=== PATIENT | male | born 1975 | race Caucasian/White ===

== ENCOUNTER → 2017-01-19 | Outpatient (CLI) | payer OTHER ==
[~2017-01-19] MED LIST: AMOX500C OR; AZIT600T PO; CIPR500T89 PO; NORCOTAB PO; PRED10TA2 PO; PRED20TA PO; PRED50TA PO; robitussin
--- NOTE | 2017-01-20 08:04 | REP ---
LEFT FOOT: HISTORY: Pain after trauma yesterday. FINDINGS: The joint spaces are symmetric and relatively well maintained. There is no evidence of acute fracture or destructive osseous lesion. IMPRESSION: Negative. Signed by Huy Medina DO 01/20/2017 09:55 A
--- NOTE | 2017-01-20 08:05 | REP ---
LEFT ANKLE: HISTORY: Pain after trauma yesterday. FINDINGS: No acute fracture or destructive osseous lesion. The mortise is intact. There is a tiny retrocalcaneal heel spur. Signed by Huy Medina DO 01/20/2017 09:55 A
== END ==
LOC: M WUC 13:19
PROVIDERS: ATTEND Physician Assistant
DX: S93.422A Sprain of deltoid ligament of left ankle, initial encounter (principal); S93.602A Unspecified sprain of left foot, initial encounter; X58.XXXA Exposure to other specified factors, initial encounter; Y92.89 Other specified places as the place of occurrence of the external cause; Y93.89 Activity, other specified; Y99.8 Other external cause status

== ENCOUNTER → 2017-02-09 | Outpatient (CLI) | payer OTHER ==
--- NOTE | 2017-02-09 12:46 | REP ---
Clinical: Hyperlipidemia. Comparison: 02/20/2016. Technique: PA and lateral. Findings: The mediastinum and cardiac silhouette are normal. The lung zheng demonstrate minimal stable chronic changes without acute consolidation, effusion, or pneumothorax. The skeletal structures are intact and normal. Impression: 1. No acute cardiopulmonary process. Signed by Dayne Sanchez MD 02/09/2017 12:38 P
[2017-02-09 13:13] LABS: BASO # 0.1 K/mm3 (0.0-0.2); EOS # 0.5 K/mm3 (0.0-0.50); EOS % 4.9 % (0.0-3.0); LYMPH # 2.3 K/mm3 (1.5-4.5); LYMPH % 24.2 % (24.0-44.0); MEAN CORPUSCULAR HEMOGLOBIN 30.7 pg (27.0-33.0); MEAN CORPUSCULAR HGB CONC 33.6 g/dl (32.0-36.5); MEAN CORPUSCULAR VOLUME 91.5 fl (80.0-96.0); MONO # 0.9 K/mm3 (0.0-0.8); NEUTROPHILS # 5.6 K/mm3 (1.8-7.7); NEUTROPHILS % 59.1 % (36.0-66.0); RED CELL DISTRIBUTION WIDTH 12.9 % (11.5-14.5); WHITE BLOOD COUNT 9.5 K/mm3 (4.0-10.0)
[2017-02-09 13:32] LABS: ALBUMIN 3.6 GM/DL (3.2-5.2); ALBUMIN/GLOBULIN RATIO 1.03 (1.00-1.93); ALKALINE PHOSPHATASE 106 U/L (45-117); ALT/SGPT 30 U/L (12-78); ANION GAP 4 MEQ/L (8-16); AST/SGOT 17 U/L (15-37); BILIRUBIN,TOTAL 0.3 MG/DL (0.2-1.0); BLOOD UREA NITROGEN 8 MG/DL (7-18); CALCIUM LEVEL 9.1 MG/DL (8.5-10.1); CARBON DIOXIDE LEVEL 30 MEQ/L (21-32); CHLORIDE LEVEL 108 MEQ/L (98-107); CHOLESTEROL LEVEL 254 MG/DL (<200); GLOMERULAR FILTRATION RATE > 60.0 (>60); GLUCOSE, FASTING 80 MG/DL (70-105); POTASSIUM SERUM 4.4 MEQ/L (3.5-5.1); SODIUM LEVEL 142 MEQ/L (136-145); TOTAL PROTEIN 7.1 GM/DL (6.4-8.2); TRIGLYCERIDES LEVEL 155 MG/DL (<150)
--- NOTE | 2017-02-09 16:52 | ECGEPIP ---
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
== END ==
LOC: M LAB 12:07
PROVIDERS: ATTEND Physician Assistant Medical
DX: E78.2 Mixed hyperlipidemia (principal); J44.9 Chronic obstructive pulmonary disease, unspecified

== ENCOUNTER → 2017-02-19 | Outpatient (CLI) | payer OTHER | LOC: M LAB 08:28 | PROVIDERS: ATTEND Physician Assistant Medical | DX: R00.2 Palpitations (principal) ==

== ENCOUNTER → 2017-02-19 | Outpatient (CLI) | payer OTHER ==
--- NOTE | 2017-02-19 09:03 | REP ---
Right upper quadrant sonography: History: Right upper quadrant pain. Findings: Scanning through the right upper quadrant of the abdomen demonstrates a small partially contracted appearing gallbladder without evidence of stone or polyp. Common bile duct is normal measuring 0.4 cm in greatest diameter. No focal hepatic lesion is seen. No pancreatic abnormality is observed. There is no evidence of ascites or right renal abnormality. The right kidney measures 12.1 x 6.0 x 5.4 cm. Impression: Negative right upper quadrant sonography. Signed by Anthony Jarrett MD 02/19/2017 02:50 P
== END ==
LOC: M RAD 07:56
PROVIDERS: ATTEND Physician Assistant Medical
DX: R10.84 Generalized abdominal pain (principal)

== ENCOUNTER → 2017-05-25 | Outpatient (CLI) | payer OTHER ==
[~2017-05-25] MED LIST changes: +CIPR-249 PO; -CIPR500T89 PO
[2017-05-25 11:10] LABS: BASO # 0.1 K/mm3 (0.0-0.2); BASO % 0.7 % (0.0-1.0); EOS # 0.6 K/mm3 (0.0-0.50); EOS % 4.4 % (0.0-3.0); LYMPH # 2.6 K/mm3 (1.5-4.5); LYMPH % 20.6 % (24.0-44.0); MEAN CORPUSCULAR HEMOGLOBIN 30.4 pg (27.0-33.0); MEAN CORPUSCULAR HGB CONC 33.5 g/dl (32.0-36.5); MEAN CORPUSCULAR VOLUME 90.7 fl (80.0-96.0); MONO # 1.1 K/mm3 (0.0-0.8); MONO % 8.7 % (0.0-5.0); NEUTROPHILS % 64.6 % (36.0-66.0); RED CELL DISTRIBUTION WIDTH 13.2 % (11.5-14.5); WHITE BLOOD COUNT 12.3 K/mm3 (4.0-10.0)
[2017-05-25 11:37] LABS: ALBUMIN 3.8 GM/DL (3.2-5.2); ALBUMIN/GLOBULIN RATIO 1.19 (1.00-1.93); ALKALINE PHOSPHATASE 123 U/L (45-117); ALT/SGPT 43 U/L (12-78); ANION GAP 3 MEQ/L (8-16); AST/SGOT 22 U/L (15-37); BILIRUBIN,TOTAL 0.3 MG/DL (0.2-1.0); BLOOD UREA NITROGEN 8 MG/DL (7-18); CALCIUM LEVEL 8.8 MG/DL (8.5-10.1); CARBON DIOXIDE LEVEL 30 MEQ/L (21-32); CHLORIDE LEVEL 107 MEQ/L (98-107); CHOLESTEROL LEVEL 180 MG/DL (<200); CREATININE FOR GFR 0.76 MG/DL (0.70-1.30); FREE T4 0.77 NG/DL (0.76-1.46); GLOMERULAR FILTRATION RATE > 60.0 (>60); GLUCOSE, FASTING 90 MG/DL (70-105); POTASSIUM SERUM 4.4 MEQ/L (3.5-5.1); SODIUM LEVEL 140 MEQ/L (136-145); TRIGLYCERIDES LEVEL 162 MG/DL (<150)
== END ==
LOC: M LAB 10:39
PROVIDERS: ATTEND Physician Assistant Medical
DX: R07.9 Chest pain, unspecified (principal)

== ENCOUNTER → 2017-07-31 | Outpatient (CLI) | payer OTHER ==
--- NOTE | 2017-07-31 08:23 | REP ---
Clinical: Right anterior abdominal pain. Technique: Real time nielson scale ultrasound examination using curved array transducer. Findings: Directed ultrasound examination at the region of maximal tenderness along the right anterior abdominal wall demonstrates normal subcutaneous tissues and musculature as well as limited visualization of the intraperitoneal structures. There is no evidence for ventral hernia. Impression: Normal examination. No evidence for hernia. Signed by Dayne Sanchez MD 07/31/2017 08:14 A
== END ==
LOC: M RAD 06:24
PROVIDERS: ATTEND Physician Assistant Medical
DX: R10.9 Unspecified abdominal pain (principal)

== ENCOUNTER → 2017-08-12 | Outpatient (CLI) | payer OTHER ==
[~2017-08-12] MED LIST changes: +GASTROGRAFIN SOLUTION 30ML (Q9963) As Ordered ONE; +ISOVUE-370 76% 100ML VIAL (Q9967) As Ordered ONE
--- NOTE | 2017-08-12 17:38 | REP ---
CT abdomen and pelvis with IV and oral contrast: History: Abdominal pain. CT contrast dose: 100 mL of Isovue 370 is given intravenously. Comparison CT study February 28, 2016. CT findings: Preliminary digital paid internship radiographs are unremarkable. The lung bases are clear except for some plate-like atelectasis in the right base. No pleural effusion or upper abdominal ascites. The liver and spleen are normal in size and homogeneous in texture. No adrenal lesion is seen on either side. Pancreas is unremarkable. No gallbladder abnormality is observed. There is a cyst projecting medially from the upper pole of the right kidney, which measures 2.0 cm. The kidneys enhance symmetrically and are otherwise morphologically intact. No retroperitoneal mass or adenopathy is seen. Small and large intestinal bowel loops are unremarkable. A normal appendix is seen in the right lower quadrant. No abdominal wall defect is observed. No bony destructive lesion seen. Impression: No acute abdominal or pelvic abnormality. Small cyst left kidney. Signed by Anthony Jarrett MD 08/12/2017 08:30 P
== END ==
LOC: M RAD 13:53
PROVIDERS: ATTEND Physician Assistant Medical
DX: R10.84 Generalized abdominal pain (principal); N28.1 Cyst of kidney, acquired
CPT/HCPCS: 74177; Q9963; Q9967

== ENCOUNTER → 2017-09-19 | Outpatient (REF) | LOC: M SMT 09:09 | DX: M51.37 Other intervertebral disc degeneration, lumbosacral region (principal); M17.11 Unilateral primary osteoarthritis, right knee ==

== ENCOUNTER 2017-09-25 14:07 | Emergency (ER) | payer OTHER ==
[2017-09-25] MEDS: IBUPROFEN 600 MG TAB PO (16:19)
[2017-09-25] MEDS: METHOCARBAMOL 500 MG TAB PO (16:20)
== END 2017-09-25 16:42 | disposition home or self-care (01) ==
LOC: M ED 14:07
DX: M54.41 Lumbago with sciatica, right side (principal); M54.42 Lumbago with sciatica, left side; G89.29 Other chronic pain; R01.1 Cardiac murmur, unspecified; Z87.01 Personal history of pneumonia (recurrent); F17.200 Nicotine dependence, unspecified, uncomplicated; Z79.899 Other long term (current) drug therapy
CPT/HCPCS: 99282

== ENCOUNTER → 2017-11-14 | Outpatient (CLI) | payer OTHER | LOC: M CARPUL 14:53 | DX: R06.02 Shortness of breath (principal) | CPT/HCPCS: 94010 ==

== ENCOUNTER → 2017-11-21 | Outpatient (CLI) | payer OTHER ==
[2017-11-21 09:39] LABS: HEMATOCRIT 42.7 % (42.0-52.0); HEMOGLOBIN 13.8 g/dl (14.0-18.0); MEAN CORPUSCULAR HEMOGLOBIN 29.1 pg (27.0-33.0); MEAN CORPUSCULAR HGB CONC 32.3 g/dl (32.0-36.5); MEAN CORPUSCULAR VOLUME 89.9 fl (80.0-96.0); PLATELET COUNT, AUTOMATED 308 10^3/uL (150-450); RED BLOOD COUNT 4.75 10^6/uL (4.30-6.10); RED CELL DISTRIBUTION WIDTH 13.5 % (11.5-14.5); WHITE BLOOD COUNT 10.8 10^3/uL (4.0-10.0)
[2017-11-21 10:00] LABS: TESTOSTERONE 370 NG/DL (241-827)
[2017-11-21 10:03] LABS: ALBUMIN 3.7 GM/DL (3.2-5.2); ALBUMIN/GLOBULIN RATIO 1.16 (1.00-1.93); ALKALINE PHOSPHATASE 121 U/L (45-117); ALT/SGPT 46 U/L (12-78); ANION GAP 6 MEQ/L (8-16); AST/SGOT 26 U/L (7-37); BILIRUBIN,TOTAL 0.3 MG/DL (0.2-1.0); BLOOD UREA NITROGEN 8 MG/DL (7-18); CALCIUM LEVEL 8.7 MG/DL (8.5-10.1); CARBON DIOXIDE LEVEL 30 MEQ/L (21-32); CHLORIDE LEVEL 107 MEQ/L (98-107); CHOLESTEROL LEVEL 157 MG/DL (<200); CHOLESTEROL RISK RATIO 3.488 (<5); CREATININE FOR GFR 0.71 MG/DL (0.70-1.30); GLOMERULAR FILTRATION RATE > 60.0 (>60); GLUCOSE, FASTING 87 MG/DL (70-100); HDL CHOLESTEROL 45 MG/DL (>40); NON-HDL-C 112 MG/DL; POTASSIUM SERUM 4.3 MEQ/L (3.5-5.1); PROSTATIC SPECIFIC AG MONITOR 2.31 NG/ML (< 4.0); SODIUM LEVEL 143 MEQ/L (136-145); TOTAL PROTEIN 6.9 GM/DL (6.4-8.2); TRIGLYCERIDES LEVEL 160 MG/DL (<150)
[2017-11-21 11:17] LABS: ESTIMATED AVERAGE GLUCOSE 108 MG/DL (60-110); HEMOGLOBIN A1c 5.4 %
== END ==
LOC: M LAB 08:51
DX: I10 Essential (primary) hypertension (principal)
CPT/HCPCS: 71046

== ENCOUNTER 2018-01-02 18:28 | Emergency (ER) | payer OTHER ==
[2018-01-02 19:30] LABS: BASO # 0.1 10^3/uL (0.0-0.2); BASO % 0.6 % (0.0-1.0); EOS # 0.3 10^3/uL (0.0-0.50); EOS % 2.6 % (0.0-3.0); HEMATOCRIT 45.4 % (42.0-52.0); HEMOGLOBIN 14.9 g/dl (13.5-17.5); IMMATURE GRANULOCYTE % 2.8 % (0-3.0); LYMPH # 2.8 10^3/uL (1.5-4.5); MEAN CORPUSCULAR HEMOGLOBIN 29.1 pg (27.0-33.0); MEAN CORPUSCULAR HGB CONC 32.8 g/dl (32.0-36.5); MEAN CORPUSCULAR VOLUME 88.7 fl (80.0-96.0); MONO % 7.6 % (0.0-5.0); NEUTROPHILS # 8.1 10^3/uL (1.8-7.7); NEUTROPHILS % 64.4 % (36.0-66.0); PLATELET COUNT, AUTOMATED 347 10^3/uL (150-450); RED BLOOD COUNT 5.12 10^6/uL (4.30-6.10); RED CELL DISTRIBUTION WIDTH 13.3 % (11.5-14.5); WHITE BLOOD COUNT 12.6 10^3/uL (4.0-10.0)
[2018-01-02 19:46] LABS: INR 0.92; PROTHROMBIN TIME 12.4 SECONDS (12.4-14.5)
[2018-01-02 19:47] LABS: PARTIAL THROMBOPLASTIN TIME 29.7 SECONDS (26.8-37.9)
[2018-01-02 19:57] LABS: ANION GAP 7 MEQ/L (8-16); BLOOD UREA NITROGEN 6 MG/DL (7-18); CALCIUM LEVEL 9.9 MG/DL (8.5-10.1); CARBON DIOXIDE LEVEL 32 MEQ/L (21-32); CHLORIDE LEVEL 103 MEQ/L (98-107); CK-MB VALUE MASS < 1.0 NG/ML (<3.6); CPK CREATINE PHOSPHOKINASE 145 U/L (39-308); CREATININE FOR GFR 0.76 MG/DL (0.70-1.30); GLOMERULAR FILTRATION RATE > 60.0 (>60); GLUCOSE, FASTING 109 MG/DL (70-100); MB/CK RELATIVE INDEX 0.68 (< OR =4); SODIUM LEVEL 142 MEQ/L (136-145); TROPONIN I < 0.02 NG/ML (< 0.10)
[2018-01-02] MEDS: KETOROLAC 30 MG/ML VIAL (J1885) IV (20:21)
[2018-01-02] MEDS ORDERED: ISOVUE-370 76% 100ML VIAL (Q9967) As Ordered (20:29)
[2018-01-02 23:30] LABS: CK-MB VALUE MASS < 1.0 NG/ML (<3.6); CPK CREATINE PHOSPHOKINASE 122 U/L (39-308); MB/CK RELATIVE INDEX 0.81 (< OR =4); TROPONIN I < 0.02 NG/ML (< 0.10)
== END 2018-01-03 00:08 | disposition home or self-care (01) ==
LOC: M ED 01-03 00:08
DX: R07.89 Other chest pain (principal); R07.1 Chest pain on breathing; I10 Essential (primary) hypertension; E78.5 Hyperlipidemia, unspecified; K21.9 Gastro-esophageal reflux disease without esophagitis; Z98.61 Coronary angioplasty status; F17.200 Nicotine dependence, unspecified, uncomplicated; Z79.82 Long term (current) use of aspirin; Z79.899 Other long term (current) drug therapy
CPT/HCPCS: Q9967

== ENCOUNTER → 2018-02-06 | Outpatient (CLI) | payer OTHER ==
[2018-02-06 07:48] LABS: HEMATOCRIT 42.5 % (42.0-52.0); MEAN CORPUSCULAR HEMOGLOBIN 29.7 pg (27.0-33.0); MEAN CORPUSCULAR HGB CONC 32.9 g/dl (32.0-36.5); PLATELET COUNT, AUTOMATED 354 10^3/uL (150-450); RED BLOOD COUNT 4.72 10^6/uL (4.30-6.10); RED CELL DISTRIBUTION WIDTH 13.7 % (11.5-14.5); WHITE BLOOD COUNT 12.2 10^3/uL (4.0-10.0)
[2018-02-06 07:59] LABS: INR 0.77; PROTHROMBIN TIME 10.8 SECONDS (12.4-14.5)
[2018-02-06 09:04] LABS: ALBUMIN 3.5 GM/DL (3.2-5.2); ALBUMIN/GLOBULIN RATIO 1.03 (1.00-1.93); ALKALINE PHOSPHATASE 134 U/L (45-117); ALT/SGPT 63 U/L (12-78); ANION GAP 6 MEQ/L (8-16); AST/SGOT 24 U/L (7-37); BILIRUBIN,TOTAL 0.3 MG/DL (0.2-1.0); BLOOD UREA NITROGEN 5 MG/DL (7-18); CALCIUM LEVEL 8.7 MG/DL (8.5-10.1); CARBON DIOXIDE LEVEL 28 MEQ/L (21-32); CHLORIDE LEVEL 109 MEQ/L (98-107); CHOLESTEROL LEVEL 203 MG/DL (<200); CHOLESTEROL RISK RATIO 4.951 (<5); CREATININE FOR GFR 0.73 MG/DL (0.70-1.30); GLOMERULAR FILTRATION RATE > 60.0 (>60); GLUCOSE, FASTING 88 MG/DL (70-100); HDL CHOLESTEROL 41 MG/DL (>40); LDL CHOLESTEROL 124.8 MG/DL (<100); NON-HDL-C 162 MG/DL; POTASSIUM SERUM 4.4 MEQ/L (3.5-5.1); PROSTATIC SPECIFIC AG MONITOR 2.24 NG/ML (< 4.0); SODIUM LEVEL 143 MEQ/L (136-145); TOTAL PROTEIN 6.9 GM/DL (6.4-8.2); TRIGLYCERIDES LEVEL 186 MG/DL (<150)
[2018-02-06 11:24] LABS: ESTIMATED AVERAGE GLUCOSE 117 MG/DL (60-110); HEMOGLOBIN A1c 5.7 %
== END ==
LOC: M LAB 06:40
DX: Z01.818 Encounter for other preprocedural examination (principal); I10 Essential (primary) hypertension
CPT/HCPCS: 71046

== ENCOUNTER 2018-02-25 06:59 | Outpatient (RCR) | payer OTHER | END 2018-03-15 | LOC: M PT 06:59 | DX: Z47.89 Encounter for other orthopedic aftercare (principal); M25.561 Pain in right knee; Z98.890 Other specified postprocedural states | CPT/HCPCS: 97110 ==

== ENCOUNTER 2018-03-24 08:54 | Outpatient (RCR) | payer OTHER | END 2018-04-15 | LOC: M PT 08:54 | DX: Z47.89 Encounter for other orthopedic aftercare (principal); M25.561 Pain in right knee | CPT/HCPCS: 97110 ==

== ENCOUNTER → 2018-08-19 | Outpatient (CLI) | payer OTHER ==
[2018-08-19 07:12] LABS: HEMATOCRIT 44.2 % (42.0-52.0); HEMOGLOBIN 14.2 g/dl (13.5-17.5); MEAN CORPUSCULAR HEMOGLOBIN 29.3 pg (27.0-33.0); MEAN CORPUSCULAR HGB CONC 32.1 g/dl (32.0-36.5); MEAN CORPUSCULAR VOLUME 91.3 fl (80.0-96.0); PLATELET COUNT, AUTOMATED 360 10^3/uL (150-450); RED BLOOD COUNT 4.84 10^6/uL (4.30-6.10); RED CELL DISTRIBUTION WIDTH 13.3 % (11.5-14.5); WHITE BLOOD COUNT 14.6 10^3/uL (4.0-10.0)
[2018-08-19 07:45] LABS: ALBUMIN 3.7 GM/DL (3.2-5.2); ALBUMIN/GLOBULIN RATIO 1.16 (1.00-1.93); ALKALINE PHOSPHATASE 118 U/L (45-117); ALT/SGPT 52 U/L (12-78); AMYLASE 42 U/L (25-115); ANION GAP 5 MEQ/L (8-16); AST/SGOT 20 U/L (7-37); BILIRUBIN,TOTAL 0.3 MG/DL (0.2-1.0); BLOOD UREA NITROGEN 12 MG/DL (7-18); CALCIUM LEVEL 8.8 MG/DL (8.5-10.1); CARBON DIOXIDE LEVEL 28 MEQ/L (21-32); CHLORIDE LEVEL 107 MEQ/L (98-107); CHOLESTEROL LEVEL 204 MG/DL (<200); CHOLESTEROL RISK RATIO 4.857 (<5); CREATININE FOR GFR 0.66 MG/DL (0.70-1.30); GLOMERULAR FILTRATION RATE > 60.0 (>60); GLUCOSE, FASTING 96 MG/DL (70-100); HDL CHOLESTEROL 42 MG/DL (>40); LDL CHOLESTEROL 97 MG/DL (<100); NON-HDL-C 162 MG/DL; POTASSIUM SERUM 4.5 MEQ/L (3.5-5.1); PROSTATIC SPECIFIC AG MONITOR 2.5 NG/ML (< 4.0); SODIUM LEVEL 140 MEQ/L (136-145); TOTAL PROTEIN 6.9 GM/DL (6.4-8.2); TRIGLYCERIDES LEVEL 327 MG/DL (<150)
[2018-08-19 10:08] LABS: TESTOSTERONE 284 NG/DL (241-827)
== END ==
LOC: M LAB 06:22
DX: D64.9 Anemia, unspecified (principal); R53.83 Other fatigue; E03.9 Hypothyroidism, unspecified
CPT/HCPCS: 82150

== ENCOUNTER → 2018-09-02 | Outpatient (CLI) | payer OTHER ==
[~2018-09-02] MED LIST changes: +ASPI1TAB PO; +ATOR1TAB21 PO; +BENT10CA PO; +E-Z-GAS II EFFERVESCENT PACKET (SODIUM BICARB./CITRIC ACID/SIMETHICONE) As Ordered ONE; +E-Z-HD 98% w/w 340GM SUSP BTL As Ordered ONE; +E-Z-PAQUE 96% w/w SUSP 176GM BTL As Ordered ONE; -GASTROGRAFIN SOLUTION 30ML (Q9963) As Ordered ONE; +IBUP-1022 PO; -ISOVUE-370 76% 100ML VIAL (Q9967) As Ordered ONE; +KETO10TAB PO; +METO25TA4 PO; +OMEP40CA2 PO; +ROBA500T PO
--- NOTE | 2018-09-02 17:17 | REP ---
Upper GI air contrast The procedure was performed under the direct supervision of Dr. Jarrett. The images were reviewed with Dr. Jarrett The cavalry scout film shows no organomegaly or pathological masses. The intestinal gas pattern is non-specific. Liquid barium and gas producing crystals were given in the erect position as well as liquid barium in the prone oblique position in order to perform a double contrast upper GI examination. The oral and pharyngeal stages of deglutition are unremarkable. Esophageal transport is prompt and efficient and there is no esophagitis, stricture or mucosal ring. There is a small sliding hiatal hernia. Gastroesophageal reflux is not demonstrated on this examination. The stomach puckett are normally outlined . The rugal folds are smooth and regular. There is no gastritis neoplasm or ulcer disease. There are thickened folds in the duodenum which may represent duodenitis. There is no lashawn ulcer identified. There is a small diverticulum in the descending portion of the duodenum. The visualized portion of the proximal small bowel appears normal in course and caliber. Impression: 1. There is a small sliding hiatal hernia. 2. There are thickened folds in the duodenum which may represent duodenitis. There is no lashawn ulcer identified. There is a diverticulum in the descending portion of the duodenum. 1.9 minutes of fluoro time was utilized for this procedure. Reviewed by RAS Daugherty 09/02/2018 04:36 P Electronically Signed by Anthony Jarrett MD 09/02/2018 05:08 P
--- NOTE | 2018-09-03 06:21 | REP ---
Clinical: Abdominal pain with history of gastroesophageal reflux disease. Technique: Rodriguez scale ultrasound using curved array transducer. Findings: The liver demonstrates mild diffuse fatty infiltration without focal hepatic lesion. Visualized pancreas is unremarkable. The gallbladder is normal without gallstones, wall thickening or pericholecystic fluid. No biliary ductal dilatation is appreciated, and the common bile duct measures 3.6 mm diameter. The right kidney is normal in reniform shape without hydronephrosis and measures 11.2 x 5.4 x 4.7 cm with findings to suggest partial duplication to the collecting system. No ascites. Visualized portions of the abdominal aorta normal. Impression: 1. Hepatic steatosis. 2. 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 Electronically Signed by Dayne Sanchez MD 09/03/2018 06:13 A
== END ==
LOC: M RAD 08:35
PROVIDERS: ATTEND Family Medicine
DX: K44.9 Diaphragmatic hernia without obstruction or gangrene (principal); K76.0 Fatty (change of) liver, not elsewhere classified; R10.9 Unspecified abdominal pain; K21.9 Gastro-esophageal reflux disease without esophagitis; K80.20 Calculus of gallbladder without cholecystitis without obstruction

== ENCOUNTER → 2018-12-13 | Outpatient (CLI) | payer OTHER ==
[~2018-12-13] MED LIST changes: -E-Z-GAS II EFFERVESCENT PACKET (SODIUM BICARB./CITRIC ACID/SIMETHICONE) As Ordered ONE; -E-Z-HD 98% w/w 340GM SUSP BTL As Ordered ONE; -E-Z-PAQUE 96% w/w SUSP 176GM BTL As Ordered ONE
[2018-12-13 10:18] LABS: PROSTATIC SPECIFIC AG MONITOR 2.78 NG/ML (< 4.00)
== END ==
LOC: M LAB 09:11
PROVIDERS: ATTEND Family Medicine
DX: E29.1 Testicular hypofunction (principal)

== ENCOUNTER → 2019-06-12 | Outpatient (CLI) | payer OTHER ==
[~2019-06-12] MED LIST changes: -ASPI1TAB PO; +ASPI81TA26 PO; +HYDR-3715 PO; -NORCOTAB PO
--- NOTE | 2019-06-12 08:10 | REP ---
Clinical: Upper abdominal pain with reflux disease. Technique: Real time nielson scale and color evaluation using curved array transducer. Findings: Liver and visualized pancreas are normal in contour, size, echogenicity without focal hepatic or pancreatic lesion identified. Gallbladder is normal and without gallstones, wall thickening, or pericholecystic fluid. No biliary ductal dilatation is appreciated and the common bile duct measures 3.7 mm diameter. No ascites. Right kidney is normal in reniform shape without hydronephrosis and measures 12.1 x 6.3 x 5.1 cm. Impression: Normal right upper quadrant ultrasound. Electronically Signed by Dayne Sanchez MD 06/12/2019 08:02 A
== END ==
LOC: M RAD 07:09
PROVIDERS: ATTEND Physician Assistant Medical
DX: R10.9 Unspecified abdominal pain (principal); K21.9 Gastro-esophageal reflux disease without esophagitis

== ENCOUNTER 2019-07-24 13:12 | Day surgery (SDC) | payer OTHER ==
[~2019-07-24] VITALS: Ht 172.7 cm; Wt 108.4 kg
[~2019-07-24 13:12] MED LIST changes: +IBUP40TA PO; +LANS30CA PO; +LEVO88TA3 PO; +NAPR-885 PO; +NS 1,000 ML IV ONE; -OMEP40CA2 PO; +OMEP40CA97 PO; +PANT40TA3 PO; +TEST200I14 IM
[2019-07-24] MEDS ORDERED: PROPOFOL 200 MG/20 ML VIAL As Ordered ONE ×2 (13:49→15:01)
[2019-07-24] MEDS ORDERED: LIDOCAINE 2% INJ 100 MG/5 ML SDV (FOR ANES.) As Ordered ONE (13:50)
[2019-07-24] MEDS ORDERED: fentaNYL 100 MCG/2 ML INJECTION (J3010) As Ordered ONE (14:11)
--- NOTE | 2019-07-24 15:08 | ROOR ---
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 Procedure: Pre-Anesthesia Assessment: - The heart rate, respiratory rate, oxygen saturations, blood pressure, adequacy of pulmonary ventilation, and response to care were monitored throughout the procedure. The Endoscope was introduced through the mouth, and advanced to the second part of duodenum. The upper GI endoscopy was accomplished without difficulty. The patient tolerated the procedure well. Findings: There were esophageal mucosal changes suspicious for short-segment Marin's esophagus present at the gastroesophageal junction. The maximum longitudinal extent of these mucosal changes was 1 cm in length. Mucosa was biopsied with a cold forceps for histology. One specimen bottle was sent to pathology. The exam of the esophagus was otherwise normal. The entire examined stomach was normal. Biopsies were taken with a cold forceps for Helicobacter pylori testing. Patchy mildly erythematous mucosa was found in the first portion of the duodenum. This was biopsied with a cold forceps for histology. The exam of the duodenum was otherwise normal. Impression: - Esophageal mucosal changes suspicious for short-segment (1 cm) Marin's esophagus. Biopsied. - Normal stomach. Biopsied. - Mild duodenitis in first portion. Biopsied. Recommendation: - Continue present medications. - Use Prevacid (lansoprazole) 30 mg PO daily indefinitely. - Follow an antireflux regimen. - Repeat upper endoscopy in 3 years for surveillance. Orlando Bonds MD Orlando BONDS MD 07/24/2019 3:08:36 PM Electronically signed by Orlando BONDS MD Number of Addenda: 0 Note Initiated On: 07/24/2019 2:49 PM Estimated Blood Loss: Estimated blood loss: none.
[2019-07-24 15:30] VITALS: BP 126/85
== END 2019-07-24 15:43 | disposition home or self-care (01) ==
LOC: M OPP 13:12
PROVIDERS: ATTEND Internal Medicine Gastroenterology
DX: K22.70 Barrett's esophagus without dysplasia (principal); K31.89 Other diseases of stomach and duodenum; K21.9 Gastro-esophageal reflux disease without esophagitis; R10.13 Epigastric pain; F17.210 Nicotine dependence, cigarettes, uncomplicated; Z79.82 Long term (current) use of aspirin; Z79.899 Other long term (current) drug therapy
CPT/HCPCS: 43239; 88305; J3010

== ENCOUNTER → 2019-07-26 | Outpatient (CLI) | payer OTHER ==
[~2019-07-26] MED LIST changes: -NS 1,000 ML IV ONE
[2019-07-26 08:01] LABS: PROSTATIC SPECIFIC AG MONITOR 3.07 NG/ML (< 4.00)
== END ==
LOC: M LAB 06:53
PROVIDERS: ATTEND Family Medicine
DX: E29.1 Testicular hypofunction (principal)

== ENCOUNTER 2020-05-13 14:04 | Emergency (ER) | payer OTHER ==
[~2020-05-13] VITALS: Ht 172.7 cm; Wt 119.6 kg
[~2020-05-13 14:04] MED LIST changes: +PANT40TA29 PO; -PANT40TA3 PO
[2020-05-13] MEDS ORDERED: BOOSTRIX/ADACEL VACCINE (DIPHTH/PERTUSS/ACELL/TETANUS) 0.5ML SYR IM ONE (15:15)
[2020-05-13] MEDS ORDERED: LIDOCAINE 1% MDV 20ML VIAL INFIL ONE (15:30)
[2020-05-13 16:01] VITALS: BP 143/84
== END 2020-05-13 16:01 | disposition home or self-care (01) ==
LOC: M ED 14:04
DX: S61.412A Laceration without foreign body of left hand, initial encounter (principal); W26.8XXA Contact with other sharp object(s), not elsewhere classified, initial encounter; Y92.9 Unspecified place or not applicable; Y93.9 Activity, unspecified; Y99.9 Unspecified external cause status; K21.9 Gastro-esophageal reflux disease without esophagitis; I10 Essential (primary) hypertension; F17.200 Nicotine dependence, unspecified, uncomplicated; Z79.82 Long term (current) use of aspirin; Z79.890 Hormone replacement therapy; Z79.1 Long term (current) use of non-steroidal anti-inflammatories (NSAID); Z79.899 Other long term (current) drug therapy

== ENCOUNTER 2020-05-25 11:11 | Emergency (ER) | payer MEDICARE, MEDICAID ==
[~2020-05-25] VITALS: Ht 172.7 cm; Wt 102.3 kg
[2020-05-25 11:11] VITALS: BP 127/70
== END 2020-05-25 11:54 | disposition home or self-care (01) ==
LOC: M ED 11:11
DX: Z48.02 Encounter for removal of sutures (principal); I10 Essential (primary) hypertension; E78.5 Hyperlipidemia, unspecified; K21.9 Gastro-esophageal reflux disease without esophagitis

== ENCOUNTER → 2020-07-12 | Outpatient (CLI) | payer MEDICARE, MEDICAID ==
[2020-07-12 10:03] LABS: HEMATOCRIT 45.2 % (42.0-52.0); HEMOGLOBIN 14.6 g/dl (13.5-17.5); MEAN CORPUSCULAR HEMOGLOBIN 29.4 pg (27.0-33.0); MEAN CORPUSCULAR HGB CONC 32.3 g/dl (32.0-36.5); MEAN CORPUSCULAR VOLUME 90.9 fl (80.0-96.0); PLATELET COUNT, AUTOMATED 230 10^3/uL (150-450); RED BLOOD COUNT 4.97 10^6/uL (4.30-6.10); WHITE BLOOD COUNT 12.2 10^3/uL (4.0-10.0)
[2020-07-12 10:57] LABS: HEMOGLOBIN A1c 5.3 %
[2020-07-12 15:46] LABS: ALBUMIN 3.8 GM/DL (3.2-5.2); ALT/SGPT 54 U/L (12-78); BILIRUBIN,TOTAL 0.3 MG/DL (0.2-1.0); BLOOD UREA NITROGEN 6 MG/DL (7-18); CALCIUM LEVEL 9.1 MG/DL (8.5-10.1); CARBON DIOXIDE LEVEL 23 MEQ/L (21-32); CHLORIDE LEVEL 108 MEQ/L (98-107); CHOLESTEROL LEVEL 251 MG/DL (<200); CHOLESTEROL RISK RATIO 6.275 (<5); CREATININE FOR GFR 0.72 MG/DL (0.70-1.30); GLOMERULAR FILTRATION RATE > 60.0 (>60); GLUCOSE, FASTING 92 MG/DL (70-100); HDL CHOLESTEROL 40 MG/DL (>40); LDL CHOLESTEROL 157 MG/DL (<100); NON-HDL-C 211 MG/DL; POTASSIUM SERUM 4.7 MEQ/L (3.5-5.1); PROSTATIC SPECIFIC AG MONITOR 2.68 NG/ML (< 4.00); SODIUM LEVEL 137 MEQ/L (136-145); TESTOSTERONE 215 NG/DL (241-827); TOTAL PROTEIN 7.5 GM/DL (6.4-8.2); TRIGLYCERIDES LEVEL 272 MG/DL (<150)
== END ==
LOC: M LAB 09:28
PROVIDERS: ATTEND Family Medicine
DX: E03.9 Hypothyroidism, unspecified (principal); I10 Essential (primary) hypertension; R53.83 Other fatigue; Z79.899 Other long term (current) drug therapy

== ENCOUNTER → 2020-11-18 | Outpatient (CLI) | payer MEDICARE, MEDICAID ==
[~2020-11-18] MED LIST changes: +IBUP1TAB5 PO; -IBUP40TA PO
[2020-11-18 11:34] LABS: HEMATOCRIT 47.4 % (42.0-52.0); MEAN CORPUSCULAR HEMOGLOBIN 27.9 pg (27.0-33.0); MEAN CORPUSCULAR HGB CONC 31.6 g/dl (32.0-36.5); MEAN CORPUSCULAR VOLUME 88.1 fl (80.0-96.0); PLATELET COUNT, AUTOMATED 385 10^3/uL (150-450); RED BLOOD COUNT 5.38 10^6/uL (4.30-6.10); WHITE BLOOD COUNT 12.3 10^3/uL (4.0-10.0)
[2020-11-18 12:12] LABS: ALBUMIN 3.7 GM/DL (3.2-5.2); ALT/SGPT 38 U/L (12-78); BILIRUBIN,TOTAL 0.2 MG/DL (0.2-1.0); BLOOD UREA NITROGEN 5 MG/DL (7-18); CALCIUM LEVEL 9.3 MG/DL (8.5-10.1); CARBON DIOXIDE LEVEL 27 MEQ/L (21-32); CHLORIDE LEVEL 103 MEQ/L (98-107); CHOLESTEROL LEVEL 273 MG/DL (<200); CHOLESTEROL RISK RATIO 7.184 (<5); CREATININE FOR GFR 0.78 MG/DL (0.70-1.30); GLOMERULAR FILTRATION RATE > 60.0 (>60); GLUCOSE, FASTING 81 MG/DL (70-100); HDL CHOLESTEROL 38 MG/DL (>40); LDL CHOLESTEROL 180 MG/DL (<100); NON-HDL-C 235 MG/DL; POTASSIUM SERUM 4.2 MEQ/L (3.5-5.1); PROSTATIC SPECIFIC AG MONITOR 4.41 NG/ML (< 4.00); SODIUM LEVEL 137 MEQ/L (136-145); TESTOSTERONE 655 NG/DL (241-827); TOTAL PROTEIN 7.3 GM/DL (6.4-8.2); TRIGLYCERIDES LEVEL 275 MG/DL (<150)
[2020-11-18 13:30] LABS: HEMOGLOBIN A1c 5.3 %
== END ==
LOC: M LAB 09:58
PROVIDERS: ATTEND Family Medicine
DX: E03.9 Hypothyroidism, unspecified (principal); I10 Essential (primary) hypertension; R53.83 Other fatigue; Z79.899 Other long term (current) drug therapy

== ENCOUNTER → 2021-07-27 | Outpatient (CLI) | payer MEDICARE, MEDICAID ==
[~2021-07-27] MED LIST changes: +OMEP40CA4 PO; -OMEP40CA97 PO
--- NOTE | 2021-07-27 13:20 | REP ---
INDICATION: SPRAIN LT ANKLE. COMPARISON: None. TECHNIQUE: Sagittal fat suppressed T2 and proton density. Coronal proton density, fat suppressed proton density and STIR. Axial fat suppressed proton density and T1. FINDINGS: The tendons of the tibialis anterior, extensor hallucis, and extensor digitorum muscles are intact and of normal appearing low signal throughout. The tendons of the tibialis posterior, flexor digitorum, and flexor hallucis muscles are intact and of normal appearing low signal throughout. The peroneal tendons are intact and of normal appearing low signal throughout. The Achilles tendon is intact and of normal appearing low signal throughout. The anterior and posterior tibiofibular ligaments are intact. The anterior and posterior talofibular ligaments are intact. The calcaneofibular ligament is intact. The deltoid ligament complex is intact. The ligaments within the sinus tarsi are within normal limits and the sinus tarsi fat signal is preserved. The subtalar joints are within normal limits. The lateral talar process is sharp. There is no abnormal cystic degenerative change in the os calcis deep to the angle of Gissane. The plantar soft tissues are within normal limits. There is a slight tibiotalar joint effusion. The chondral surfaces of the talar dome and tibial plafond are smooth and without abnormal chondral or subchondral signal. IMPRESSION: 1. There is no evidence of acute internal derangement. 2. There is a very slight tibiotalar joint effusion. <Electronically signed by Huy Medina > 07/27/21 1220
== END ==
LOC: M RAD 11:02
PROVIDERS: ATTEND Orthopaedic Surgery
DX: S93.402D Sprain of unspecified ligament of left ankle, subsequent encounter (principal); X58.XXXA Exposure to other specified factors, initial encounter; Y92.9 Unspecified place or not applicable; Y93.9 Activity, unspecified; Y99.9 Unspecified external cause status

== ENCOUNTER 2021-08-14 12:59 | Outpatient (RCR) | payer MEDICARE, MEDICAID | END 2021-08-15 | LOC: M PT 12:59 | PROVIDERS: ATTEND Orthopaedic Surgery | DX: M25.572 Pain in left ankle and joints of left foot (principal) ==

== ENCOUNTER 2021-08-17 15:56 | Emergency (ER) | payer MEDICARE, MEDICAID ==
[~2021-08-17] VITALS: Ht 172.7 cm; Wt 126.7 kg
[2021-08-17 15:57] VITALS: BP 153/80
--- OUTSIDE RECORDS SUMMARY | 2021-08-17 16:03 | CCD | Continuity of Care Document ---
Author Author Dionisio FARRIS MD Organization Unknown Address [address] [place] [address], [address] [address] Phone [phone] Care Team Providers Care Service Unit Operator [employer] Name Role Phone Elmer Chicas MD AUTM [phone] Problems Active Problems Provider Date Essential hypertension Ariadne Boyce MD Onset: 11/29 Pure hypercholesterolemia Ariadne Boyce MD Onset: Social History Type Date Description Comments Sex Unknown ETOH Use Denies alcohol use Tobacco Use Start: Unknown End: Unknown Patient is a former smoker Allergies and adverse reactions Description No Known Drug Allergies Medications Active Medications SIG Qnty Indications Ordering Provide r Date Metoprolol Tartrate 25mg Tablets Elmer Chicas MD Levothyroxine Sodium 150mcg Tablet s Take One Tablet By Mouth Every Day Unknown Atorvastatin Calcium 40mg Tablets Take One Tablet By Mouth Every Day Unknown Pantoprazole Sodium 40mg Tablets D R Take One Tablet By Mouth Every Day Unknown Sucralfate 1gm Tablets Take One Tablet By Mouth Three Times A Day Unknown 00 Levothyroxine Sodium 100mcg Tablet s Take One Tablet By Mouth Every Day Unknown Ibuprofen 400mg Tablets Take One Tablet By Mouth Every Day Unknown Atorvastatin Calcium 20mg Tablets Take One Tablet By Mouth Every Day Unknown Testosterone Cypionate 200mg/ml So lution Inject 2ML Intramuscularly Every 2 Weeks Maximum Daily Dose 2ML Unknown Immunizations Description No Information Available Vital Signs Date Vital Result Comment 07/06/2021 2:57pm Body Temperature 97.8 F Height 67 inches 5'7" Weight 271.50 lb BMI (Body Mass Index) 42.5 kg/m2 11/29/2017 8:32am Body Temperature 98.4 F Height 69 inches 5'9" Weight 246.00 lb BMI (Body Mass Index) 36.3 kg/m2 Results Description No Information Available Procedures Date Code Description Status 07/06/2021 96880 Office/Outpatient New Moderate M DM 45-59 Minutes Completed Medical Devices Description No Information Available Encounters Type Date Location Provider Dx Diagnosis Office Visit 07/06/2021 3:00p [place] Joey Farris MD M25.572 Pain in left ankle and joints of left foot Assessments Date Code Description Provider 07/06/2021 M25.572 Pain in left ankle and joints of left foot Joey Farris MD 07/06/2021 M25.572 Pain in left ankle and joints of left foot Joey Farris MD Plan of Treatment Future Appointment(s):* 08/03/2021 11:15 am - Joey Farris MD at [place] 07/06/2021 - Joey Farris MD* M25.572 Pain in left ankle and joints of left foot* Follow up:* lt ankle mri results with SBF Functional Status Description No Information Available Mental Status Description No Information Available Referrals Refer to Dr Reason for Referral Status Appt Date Kvng Johnson PA-C MRI NO AUTH REQUIRED FOR MRI OF LEFT ANKLE ([id number]) TO DEBRA SALDAÑA Created [facility] [place] [address] [phone] Kvng Johnson PA-C MRI NO AUTH REQUIRED FOR MRI OF LEFT ANKLE ([id number]) TO DEBRA SALDAÑA Created [facility] [place] [address] [phone]
--- OUTSIDE RECORDS SUMMARY | 2021-08-17 16:03 | CCD | Continuity of Care Document ---
Author Author Dionisio FARRIS MD Organization Unknown Address [address] [place] [address], [facility] e [address] [place] [address] Phone [phone] Care Team Providers Care Manager Solar Name Role Phone Elmer Chicas MD AUTM [phone] Problems Active Problems Provider Date Essential hypertension Ariadne Boyce MD Onset: 11/29 Pure hypercholesterolemia Ariadne Boyce MD Onset: Social History Type Date Description Comments Sex Unknown ETOH Use Rarely consumes alcohol Tobacco Use Start: Unknown End: Unknown Patient is a former smoker Allergies and adverse reactions Description No Known Drug Allergies Medications Active Medications SIG Qnty Indications Ordering Provide r Date Percocet 5-325mg Tablets 1-2 tabs every 4- 6 hours prn/pain; Please DO Not Fill Until 02/19/18 40tabs Ariadne Boyce MD 02/19/2018 Immunizations Description No Information Available Vital Signs Date Vital Result Comment 07/06/2021 2:57pm Body Temperature 97.8 F Height 67 inches 5'7" Weight 271.50 lb BMI (Body Mass Index) 42.5 kg/m2 11/29/2017 8:32am Body Temperature 98.4 F Height 69 inches 5'9" Weight 246.00 lb BMI (Body Mass Index) 36.3 kg/m2 Results Description No Information Available Procedures Date Code Description Status 07/06/2021 90004 Office/Outpatient New Moderate M DM 45-59 Minutes Completed Medical Devices Description No Information Available Encounters Type Date Location Provider Dx Diagnosis Office Visit 07/06/2021 3:00p [place] Joey Farris MD S93.402D Sprain of unspecified ligament of left ankle, subs encntr Assessments Date Code Description Provider 07/06/2021 S93.402D Sprain of unspecifie d ligament of left ankle, subsequent encounter Joey Farris MD Plan of Treatment 07/06/2021 - Joey Farris MD* S93.402D Sprain of unspecified ligament of left ankle, subsequent encounter* New Xrays:* MRI LT Ankle, Ordered: 07/06/21 * Follow up:* lt ankle mri results with SBF Functional Status Description No Information Available Mental Status Description No Information Available Referrals Description No Information Available
--- OUTSIDE RECORDS SUMMARY | 2021-08-17 16:03 | CCD | Continuity of Care Document ---
Author Author Dionisio FARRIS MD Organization Unknown Address [address] [place] [address], [address] [address] Phone [phone] Care Team Providers Care Sap Solutions Architect Name Role Phone Elmer Chicas MD AUTM [phone] Problems Active Problems Provider Date Essential hypertension [...] Available Procedures Date Code Description Status 07/06/2021 23724 Office/Outpatient New Moderate M DM 45-59 Minutes Completed Medical Devices Description No Information Available Encounters Type Date Location Provider Dx Diagnosis Office Visit 07/06/2021 3:00p [facility] Joey Farris MD M25.572 Pain in left ankle and joints of left foot Assessments Date Code Description Provider 07/06/2021 M25.572 Pain in left ankle and joints of left foot Joey Farris MD 07/06/2021 M25.572 Pain in left ankle and joints of left foot Joey Farris MD Plan of Treatment Future Appointment(s):* 08/03/2021 11:15 am - Joey Farris MD at [facility] 07/06/2021 - Joey Farris MD* M25.572 Pain in left ankle and joints of left foot* Follow up:* lt ankle mri results with SBF Functional Status Description No Information Available Mental Status Description No Information Available Referrals Refer to Dr Reason for Referral Status Appt Date Kvng Johnson PA-C MRI NO AUTH REQUIRED FOR MRI OF LEFT ANKLE ([id number]) TO DEBRA SALDAÑA Created [facility] [place] [address] [phone] Kvng Johnson PA-C MRI NO AUTH REQUIRED FOR MRI OF LEFT ANKLE ([id number]) TO DEBRA SALDAÑA Created [facility] [place] [address] [phone]
--- OUTSIDE RECORDS SUMMARY | 2021-08-17 16:03 | CCD | Continuity of Care Document ---
Author Dionisio Monzon DPM Organization Unknown Address [address] [place] [address], [facility] [address] [place] [address] Phone [phone] Care Team Providers Care Sponsorship Manager Name Role Phone Juan Francisco HillCamilaM [phone] Problems Active Problems Provider Date Plantar fascial fibromatosis Reji Miramontes DPM Onset: Calcaneal spur Reji Miramontes DPM Onset: 05/16/2019 Calcaneal spur Reji Miramontes DPM Onset: 05/16/2019 Ingrowing nail Reji Miramontes DPM Onset: 10/27/2020 Pain in limb Reji Miramontes DPM Onset: 10/27/2020 Social History Type Date Description Comments Sex Unknown ETOH Use Occasionally consumes alcohol 6- 12 beers on the weekends Tobacco Use Start: Unknown Patient is a current smoker, smo kes every day has smoked 16 years, 1-2 PPD Allergies and adverse reactions Description No Known Drug Allergies Medications Active Medications SIG Qnty Indications Ordering Provide r Date Naproxen 500mg Tablets 1 tab twice daily with food 60tabs Reji Miramontes DPM 05/08/2019 Levothyroxine Sodium 88mcg Tablets Unknown Atorvastatin Calcium 20mg Tablets Take One Tablet By Mouth Every Day Unknown Ibuprofen 400mg Tablets Take One Tablet By Mouth Every Day Unknown Metoprolol Tartrate 25mg Tablets Take One Tablet By Mouth Twice A Day Unknown Pantoprazole Sodium 40mg Tablets D R Take One Tablet By Mouth Every Day Unknown Sucralfate 1gm Tablets Take One Tablet By Mouth Three Times A Day Unknown 00 Testosterone Cypionate 200mg/ml So lution Administer 2ML Intramuscularly Every 2 Weeks Unk nown Omeprazole 20mg Capsules DR Take Two Capsules By Mouth Twice A Day Stop Pantoprazole Unknown SM Aspirin Adult Low Strength 81mg Tablets DR Take One Tablet By Mouth Every Day Unknow n Levothyroxine Sodium 100mcg Tablet s Take One Tablet By Mouth Every Day Unknown Ear Drops 6.5% Solution Instill Two Drops Otic (Ear) Every Day as Directed Unknown Medications Administered in Office Medication SIG Qnty Indications Ordering Provider Date Inject Triamcinolone Acetonide 10 ML, ND C 9927-7178-28 Injection Reji chisholm, DP 04/06/2021 Inject Dexamthosone Phosphate 36725-081- 30 Injection Reji Miramontes, DP 021 Inject Triamcinolone Acetonide 10 ML, ND C 8570-8994-58 Injection Reji chisholm, DPM 07/18/2020 Inject Dexamthosone Phosphate 58604-758- 30 Injection Reji Miramontes, DP 020 Inject Triamcinolone Acetonide 10 ML, ND C 9246-8818-67 Injection Reji chisholm, DPM 07/08/2019 Inject Dexamthosone Phosphate 50391-599- 30 Injection Reji Miramontes, DPM 019 Immunizations Description No Information Available Vital Signs Date Vital Result Comment 07/18/2020 1:27pm Height 68 inches 5'8" Weight 235.00 lb BP Systolic 130 mmHg BP Diastolic 84 mmHg Heart Rate 94 /min BMI (Body Mass Index) 35.7 kg/m2 05/08/2019 2:13pm Height 68 inches 5'8" Weight 235.00 lb BP Systolic 128 mmHg BP Diastolic 94 mmHg Heart Rate 80 /min BMI (Body Mass Index) 35.7 kg/m2 Results Description No Information Available Procedures Date Code Description Status 04/06/2021 82866 Office/Outpatient Established SF MDM 10-19 Min Completed 04/06/2021 30940 Inject Tendon/Ligament/Cyst Comp leted 04/06/2021 99500 Avulsion Nail Plate Simple Singl e Completed Medical Devices Description No Information Available Encounters Type Date Location Provider Dx Diagnosis Office Visit 04/06/2021 3:45p [facility] [place] [facility] Reji Miramontes DPM M72.2 Plantar fascial fibromatosis L03.031 Cellulitis of right toe L60.0 Ingrowing nail Assessments Date Code Description Provider 04/06/2021 M72.2 Plantar fascial fibromatosis And desiree Miramontes DPM 04/06/2021 L03.031 Cellulitis of right toe Reji Miramontes DPM 04/06/2021 L60.0 Ingrowing nail Reji Miramontes DPM Plan of Treatment Future Appointment(s):* 08/15/2021 3:30 pm - Reji Miramontes DPM at [facility] Functional Status Description No Information Available Mental Status Description No Information Available Referrals Description No Information Available
--- OUTSIDE RECORDS SUMMARY | 2021-08-17 16:03 | CCD | Continuity of Care Document ---
Author Dionisio Monzon DPM Organization Unknown Address [address] [place] [address], [facility] [address] [place] [address] Phone [phone] Care Team Providers Care Building Attendant Name Role Phone Juan Francisco HillCamilaM [phone] Problems Active Problems Provider Date Plantar fascial [...] By Mouth Three Times A Day Unknown 00/00/00 00 Testosterone Cypionate 200mg/ml So lution Administer [...] Inject Triamcinolone Acetonide 10 ML, ND C 7825-4893-34 Injection Reji chisholm, DP 04/06/2021 Inject Dexamthosone Phosphate 65258-632- 30 Injection Reji Miramontes, DP 021 Inject Triamcinolone Acetonide 10 ML, ND C 1299-5108-90 Injection Reji chisholm, DP 07/18/2020 Inject Dexamthosone Phosphate 65447-212- 30 Injection Reji Miramontes, DP 020 Inject Triamcinolone Acetonide 10 ML, ND C 2210-3250-74 Injection Reji chisholm, DPM 07/08/2019 Inject Dexamthosone Phosphate 80180-796- 30 Injection Reji Miramontes, DPM 019 Immunizations [...] Information Available Procedures Date Code Description Status 06/09/2021 11539 Debridement 6-10 Nails Electric Completed 04/06/2021 34477 Office/Outpatient Established SF MDM 10-19 Min Completed 04/06/2021 55840 Inject Tendon/Ligament/Cyst Comp leted 04/06/2021 02194 Avulsion Nail Plate Simple Singl e Completed Medical Devices Description No Information Available Encounters Type Date Location Provider Dx Diagnosis Office Visit 04/06/2021 3:45p [facility] Reji Miramontes DPM M72.2 Plantar fascial fibromatosis L03.031 Cellulitis of right toe L60.0 Ingrowing nail Assessments Date Code Description Provider 06/09/2021 B35.1 Tinea unguium Reji Miramontes DPM 06/09/2021 L60.0 Ingrowing nail Reji Miramontes DPM 06/09/2021 M79.676 Pain in unspecified toe(s) Sachin Miramontes DPM 04/06/2021 M72.2 Plantar fascial fibromatosis And desiree Miramontes, YEE 04/06/2021 L03.031 Cellulitis of right toe Reji Miramontes DPM 04/06/2021 L60.0 Ingrowing nail Reji Miramontes DPM Plan of Treatment Future Appointment(s):* 08/15/2021 3:30 pm - Reji Miramontes DPM at [facility] Functional Status Description No Information Available Mental Status Description No Information Available Referrals Description No Information Available
--- OUTSIDE RECORDS SUMMARY | 2021-08-17 16:03 | CCD | Continuity of Care Document ---
Author Author Dionisio FARRIS MD Organization Unknown Address [address] [place] [address], [facility] e [address] [place] [id number] Phone [phone] Care Team Providers Care Collision Estimator Name Role Phone Elmer Chicas MD AUTM [phone] Problems Active Problems Provider Date Essential hypertension [...] Information Available Procedures Date Code Description Status 08/03/2021 13724 Office/Outpatient Established Mo d MDM 30-39 Min Completed 07/06/2021 67147 Office/Outpatient New Moderate M DM 45-59 Minutes Completed Medical Devices Description No Information Available Encounters Type Date Location Provider Dx Diagnosis Office Visit 08/03/2021 11:15a Suzanne Farris MD M25.572 Pain in left ankle and joints of left foot Office Visit 07/06/2021 3:00p Suzanne Farris MD M25.572 Pain in left ankle and joints of left foot Assessments Date Code Description Provider 08/03/2021 M25.572 Pain in left ankle and joints of left foot Joey Farris MD 07/06/2021 M25.572 Pain in left ankle and joints of left foot Joey Farris MD 07/06/2021 M25.572 Pain in left ankle and joints of left foot Joey Farris MD Plan of Treatment 08/03/2021 - Joey Farris MD* M25.572 Pain in left ankle and joints of left foot* Follow up:* 6-8 weeks with PA for lt ankle re-check Functional Status Description No Information Available Mental Status Description No Information Available Referrals Refer to Dr Reason for Referral Status Appt Date Kvng Johnson PA-C MRI NO AUTH REQUIRED FOR MRI OF LEFT ANKLE ([id number]) TO DEBRA SALDAÑA Created [facility] [place] [address] [phone] Kvng Johnson PA-C MRI NO AUTH REQUIRED FOR MRI OF LEFT ANKLE ([id number]) TO DEBRA SALDAÑA Created [facility] [place] [address] [phone]
--- OUTSIDE RECORDS SUMMARY | 2021-08-17 16:03 | CCD | Continuity of Care Document ---
Author Author Dionisio FARRIS MD Organization Unknown Address [address] [place] [address], [facility] e [address] [place] [id number] Phone [phone] Care Team Providers Care Head Sawyer Name Role Phone Elmer Chicas MD AUTM [phone] Problems Active Problems Provider Date Essential hypertension [...] Available Procedures Date Code Description Status 07/06/2021 04545 Office/Outpatient New Moderate M DM 45-59 Minutes Completed Medical Devices Description No Information Available Encounters Type Date Location Provider Dx Diagnosis Office Visit 07/06/2021 3:00p [place] Joey Farris MD S93.402D Sprain of unspecified [...]
[2021-08-17] MEDS ORDERED: SUCR1TAB56 (16:04)
[2021-08-17] MEDS ORDERED: DEBR6.5S4 (16:04)
--- OUTSIDE RECORDS SUMMARY | 2021-08-17 16:04 | CCD ---
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 Name Role Phone Maring, Kevin PA Unavailable Unavailable Maring, Kevin PA Unavailable Unavailable Maring, Kevin PA Unavailable Unavailable Maring, Kevin PA Unavailable Unavailable Maring, Kevin PA Unavailable Unavailable Maring, Kevin PA Unavailable Unavailable Maring, Kevin PA Unavailable Unavailable Maring, Kevin PA Unavailable Unavailable Maring, Kevin PA Unavailable Unavailable Maring, Kevin PA Unavailable Unavailable Maring, Kevin PA Unavailable Unavailable Maring, Kevin PA Unavailable Unavailable Maring, Kevin PA Unavailable Unavailable Maring, Kevin PA Unavailable Unavailable Maring, Kevin PA Unavailable Unavailable Maring, Kevin PA Unavailable Unavailable Fish, B Joey KING Unavailable Unavailable Fish, B Joey KING Unavailable Unavailable Fish, B Joey KING Unavailable Unavailable Fish, B Joey KING Unavailable Unavailable Fish, B Joey KING Unavailable Unavailable Fish, B Joey KING Unavailable Unavailable Fish, B Joey KING Unavailable Unavailable Fish, B Joey KING Unavailable Unavailable Fish, B Joey KING Unavailable Unavailable Fish, B Joey KING Unavailable Unavailable Fish, B Joey KING Unavailable Unavailable Fish, B Joey KING Unavailable Unavailable Fish, B Joey KING Unavailable Unavailable Fish, B Joey KING Unavailable Unavailable Fish, B Joey KING Unavailable Unavailable Fish, B Joey KING Unavailable Unavailable Fish, B Joey KING Unavailable Unavailable Fish, B Joey KING Unavailable Unavailable Fish, B Joey KING Unavailable Unavailable Fish, B Joey KING Unavailable Unavailable Fish, B Joey KING Unavailable Unavailable Fish, B Joey KING Unavailable Unavailable Fish, B Joey KING Unavailable Unavailable Fish, B Joey KING Unavailable Unavailable Fish, B Joey KING Unavailable Unavailable Fish, B Joey KING Unavailable Unavailable Fish, B Joey KING Unavailable Unavailable Fish, B Joey KING Unavailable Unavailable Fish, B Joey KING Unavailable Unavailable Fish, B Joey KING Unavailable Unavailable Fish, B Joey KING Unavailable Unavailable Fish, B Joey KING Unavailable Unavailable Fish, B Joey KING Unavailable Unavailable Fish, B Joey KING Unavailable Unavailable Fish, B Joey KING Unavailable Unavailable Fish, B Joey KING Unavailable Unavailable Fish, B Joey KING Unavailable Unavailable Fish, B Joey KING Unavailable Unavailable Fish, B Joey KING Unavailable Unavailable Fish, B Joey KING Unavailable Unavailable Fish, B Joey KING Unavailable Unavailable Fish, B Joey KING Unavailable Unavailable Fish, B Joey KING Unavailable Unavailable Fish, B Joey KING Unavailable Unavailable Fish, B Joey KING Unavailable Unavailable Fish, B Joey KING Unavailable Unavailable Fish, B Joey KING Unavailable Unavailable Fish, B Joey KING Unavailable Unavailable Fish, B Joey KING Unavailable Unavailable Fish, B Joey KING Unavailable Unavailable Fish, B Joey KING Unavailable Unavailable Fish, B Joey KING Unavailable Unavailable Fish, B Joey KING Unavailable Unavailable Fish, B Joey KING Unavailable Unavailable Fish, B Joey KING Unavailable Unavailable Fish, B Joey KING Unavailable Unavailable Fish, B Joey KING Unavailable Unavailable Alley WHITE MD Unavailable Unavailable Alley WHITE MD Unavailable Unavailable Alley WHITE MD Unavailable Unavailable Alley WHITE MD Unavailable Unavailable Alley WHITE MD Unavailable Unavailable Alley WHITE MD Unavailable Unavailable Alley WHITE MD Unavailable Unavailable Alley WHITE MD Unavailable Unavailable Alley WHITE MD Unavailable Unavailable Alley WHITE MD Unavailable Unavailable Alley WHITE MD Unavailable Unavailable Alley WHITE MD Unavailable Unavailable Alley WHITE MD Unavailable Unavailable Alley WHITE MD Unavailable Unavailable Alley WHITE MD Unavailable Unavailable Alley WHITE MD Unavailable Unavailable Alley WHITE MD Unavailable Unavailable Alley WHITE MD Unavailable Unavailable Alley WHITE MD Unavailable Unavailable Alley WHITE MD Unavailable Unavailable Alley WHITE MD Unavailable Unavailable Alley WHITE MD Unavailable Unavailable Alley WHITE MD Unavailable Unavailable Alley WHITE MD Unavailable Unavailable Feola, T Dianne PA Unavailable Unavailable Feola, T Dianne PA Unavailable Unavailable Feola, T Dianne PA Unavailable Unavailable Feola, T Dianne PA Unavailable Unavailable Feola, T Dianne PA Unavailable Unavailable Feola, T Dianne PA Unavailable Unavailable Feola, T Dianne PA Unavailable Unavailable Feola, T Dianne PA Unavailable Unavailable Feola, T Dianne PA Unavailable Unavailable Feola, T Dianne PA Unavailable Unavailable Feola, T Dianne PA Unavailable Unavailable Feola, T Dianne PA Unavailable Unavailable Feola, T Dianne PA Unavailable Unavailable Feola, T Dianne PA Unavailable Unavailable Feola, T Dianne PA Unavailable Unavailable Feola, T Dianne PA Unavailable Unavailable Feola, T Dianne PA Unavailable Unavailable Feola, T Dianne PA Unavailable Unavailable Feola, T Dianne PA Unavailable Unavailable Feola, T Dianne PA Unavailable Unavailable Feola, T Dianne PA Unavailable Unavailable Feola, T Dianne PA Unavailable Unavailable Feola, T Dianne PA Unavailable Unavailable Feola, T Dianne PA Unavailable Unavailable Feola, T Dianne PA Unavailable Unavailable Feola, T Dianne PA Unavailable Unavailable Feola, T Dianne PA Unavailable Unavailable Feola, T Dianne PA Unavailable Unavailable Feola, T Dianne PA Unavailable Unavailable Feola, T Dianne PA Unavailable Unavailable Feola, T Dianne PA Unavailable Unavailable Feola, T Dianne PA Unavailable Unavailable Feola, T Dianne PA Unavailable Unavailable Feola, T Dianne PA Unavailable Unavailable Feola, T Dianne PA Unavailable Unavailable Feola, T Dianne PA Unavailable Unavailable Feola, T Dianne PA Unavailable Unavailable Feola, T Dianne PA Unavailable Unavailable Feola, T Dianne PA Unavailable Unavailable Feola, T Dianne PA Unavailable Unavailable Feola, T Dianne PA Unavailable Unavailable MAJAK, R LAYO DPM Unavailable Unavailable MAJAK, R LAYO DPM Unavailable Unavailable MAJAK, R LAYO DPM Unavailable Unavailable MAJAK, R LAYO DPM Unavailable Unavailable MAJAK, R LAYO DPM Unavailable Unavailable MAJAK, R LAYO DPM Unavailable Unavailable MAJAK, R LAYO DPM Unavailable Unavailable MAJAK, R LAYO DPM Unavailable Unavailable MAJAK, R LAYO DPM Unavailable Unavailable MAJAK, R LAYO DPM Unavailable Unavailable MAJAK, R LAYO DPM Unavailable Unavailable MAJAK, R LAYO DPM Unavailable Unavailable MAJAK, R LAYO DPM Unavailable Unavailable MAJAK, R LAYO DPM Unavailable Unavailable MAJAK, R LAYO DPM Unavailable Unavailable MAJAK, R LAYO DPM Unavailable Unavailable MAJAK, R LAYO DPM Unavailable Unavailable MAJAK, R LAYO DPM Unavailable Unavailable MAJAK, R LAYO DPM Unavailable Unavailable MAJAK, R LAYO DPM Unavailable Unavailable MAJAK, R LAYO DPM Unavailable Unavailable MAJAK, R LAYO DPM Unavailable Unavailable MAJAK, R LAYO DPM Unavailable Unavailable MAJAK, R LAYO DPM Unavailable Unavailable MAJAK, R LAYO DPM Unavailable Unavailable MAJAK, R LAYO DPM Unavailable Unavailable MAJAK, R LAYO DPM Unavailable Unavailable MAJAK, R LAYO DPM Unavailable Unavailable MAJAK, R LAYO DPM Unavailable Unavailable MAJAK, R LAYO DPM Unavailable Unavailable MAJAK, R LAYO DPM Unavailable Unavailable MAJAK, R LAYO DPM Unavailable Unavailable MAJAK, R LAYO DPM Unavailable Unavailable [place], N Erik CNA PER DIEM Unavailable Unavailable Franck, N Erik CNA PER DIEM Unavailable Unavailable Franck, N Erik CNA PER DIEM Unavailable Unavailable Franck, N Erik CNA PER DIEM Unavailable Unavailable [place], N Erik CNA PER DIEM Unavailable Unavailable Franck, N Erik CNA PER DIEM Unavailable Unavailable Franck, N Erik CNA PER DIEM Unavailable Unavailable Franck, N Erik CNA PER DIEM Unavailable Unavailable [place], N Erik CNA PER DIEM Unavailable Unavailable [place], N Erik CNA PER DIEM Unavailable Unavailable Franck, N Erik CNA PER DIEM Unavailable Unavailable [place], N Erik CNA PER DIEM Unavailable Unavailable [place], N Erik CNA PER DIEM Unavailable Unavailable [place], N Erik CNA PER DIEM Unavailable Unavailable Franck, N Erik CNA PER DIEM Unavailable Unavailable [place], N Erik CNA PER DIEM Unavailable Unavailable [place], N Erik CNA PER DIEM Unavailable Unavailable Franck, N Erik CNA PER DIEM Unavailable Unavailable Franck, N Erik CNA PER DIEM Unavailable Unavailable [place], N Erik CNA PER DIEM Unavailable Unavailable [place], N Erik CNA PER DIEM Unavailable Unavailable [place], N Erik CNA PER DIEM Unavailable Unavailable [place], N Erik CNA PER DIEM Unavailable Unavailable [place], N Erik CNA PER DIEM Unavailable Unavailable [place], N Erik CNA PER DIEM Unavailable Unavailable Franck, N Erik CNA PER DIEM Unavailable Unavailable Franck, N Erik CNA PER DIEM Unavailable Unavailable Franck, N Erik CNA PER DIEM Unavailable Unavailable [place], N Erik CNA PER DIEM Unavailable Unavailable Franck, N Erik CNA PER DIEM Unavailable Unavailable [place], N Erik CNA PER DIEM Unavailable Unavailable Franck, N Erik CNA PER DIEM Unavailable Unavailable Franck, N Erik CNA PER DIEM Unavailable Unavailable Re-disclosure Warning The records that you are about to access may contain information from federally-assisted alcohol or drug abuse programs. If such information is present, then the following federally mandated warning applies: This information has been disclosed to you from records protected by federal confidentiality rules (42 CFR part 2). The federal rules prohibit you from making any further disclosure of this information unless further disclosure is expressly permitted by the written consent of the person to whom it pertains or as otherwise permitted by 42 CFR part 2. A general authorization for the release of medical or other information is NOT sufficient for this purpose. The Federal rules restrict any use of the information to criminally investigate or prosecute any alcohol or drug abuse patient.The records that you are about to access may contain highly sensitive health information, the redisclosure of which is protected by Article 27-F of the [facility] Public Health law. If you continue you may have access to information: Regarding HIV / AIDS; Provided by facilities licensed or operated by the [facility] Office of Mental Health; or Provided by the [facility] Office for People With Developmental Disabilities. If such information is present, then the following [facility] mandated warning applies: This information has been disclosed to you from confidential records which are protected by state law. State law prohibits you from making any further disclosure of this information without the specific written consent of the person to whom it pertains, or as otherwise permitted by law. Any unauthorized further disclosure in violation of state law may result in a fine or longterm sentence or both. A general authorization for the release of medical or other information is NOT sufficient authorization for further disc losure. Family History Family Member Name Family Member Gender Family Member Status Date o f Status Description Data Source(s) Unknown Unknown Problem [facility] ([facility]) Unknown Male Problem [facility] ([facility] at age 72 Unknown Female Problem MEDENT ([facility] ) Unknown Female Problem MEDENT ([facility] ) Unknown Female Problem MED[facility] ([facility], ) Unknown Female Encounters Encounter Providers Location Date Indications Data Source(s ) Outpatient Attender: Joey Hollins MD Physical Therapy 08/03/2021 1 0:15:00 AM EST [facility] ([facility] ) Outpatient Attender: STEPHANY WHITE MD 07/21 10:14:08 AM EDT - 07/21/2021 11:05:39 AM EDT [facility] ([facility] ) Outpatient 07/19/2021 10:54:30 AM EDT - 021 01:06:37 PM EDT [facility] ([facility]) Outpatient Attender: Kevin MEJÍA 07/15/20 04:16:32 PM EDT - 07/15/2021 04:51:21 PM EDT [facility] ([facility] ) Outpatient Attender: Joey Hollins MD Physical Therapy 07/06/2021 0 3:00:00 PM EDT [facility] ([facility] ) [facility] 03:45:00 PM EDT [facility] Outpatient Attender: Dianne MEJÍA 021 04:33:35 PM EDT - 03/23/2021 05:46:33 PM EDT [facility] ([facility] ) Outpatient Attender: Erik Juárez NP [email or web address] 021 12:00:00 AM EDT - 12/05/2020 04:12:22 PM EDT [facility] Outpatient Attender: LAYO TAN DPM [place] Office 10/2020 02:15:00 PM EST [facility] ([facility] Outpatient Attender: LAYO TAN [facility] Office 08/16 01:15:00 PM EST [facility] ([facility] Outpatient Attender: LAYO TAN DPM [facility] 10/2019 01:15:00 PM EST [facility] ([facility] Outpatient Attender: Erik Juárez NP [email or web address] 020 12:00:00 AM EDT - 06/06/2020 04:27:43 PM EDT [facility] Medications Medication Brand Name Start Date Product Form Dose Route Admi nistrative Instructions Pharmacy Instructions Status Indications Reaction Description Data Source(s) 6.5 % 07/15/2021 12:00:00 AM EDT drops 15 INSTILL 4 DROPS IN THE AFFECTED EAR TWO TIMES A DAY FOR 4 DAYS INSTILL 4 DROPS IN THE AFFECTED EAR TWO TIMES A DAY FOR 4 DAYS SOLD: 07/17/2021 [facility] In[facility] Dexamthosone Phosphate 39056-250-86 04/06/2021 12:00:00 A M EDT completed [facility] ([facility] Medication administered onsite Inject Triamcinolone Acetonide 10 ML, [facility] 6761-2445-59 04/06/2021 12:00:00 AM EDT completed [facility] ([facility] Medication administered onsite 25 mg 02/12/2021 12:00:00 AM EDT tablet 180 TAKE ONE TABLET BY MOUTH TWICE A DAY TAKE ONE TABLET BY MOUTH TWICE A DAY SOLD: 02/19/2021 [facility] 150 mcg 01/19/2021 12:00:00 AM EDT tablet 90 TAKE ONE TABLET BY MOUTH EVERY DAY TAKE ONE TABLET BY MOUTH EVERY DAY SOLD: 01/20/2021 [facility] atorvastatin 40 MG Oral Tablet ATORVASTATIN CALCIUM 01/19/2021 1 2:00:00 AM EDT tablet 90 TAKE ONE TABLET BY MOUTH EVERY D AY TAKE ONE TABLET BY MOUTH EVERY DAY SOLD: 01/20/2021 [facility] pantoprazole 40 MG Delayed Release Oral Tablet PANTOPRAZOLE SODIUM 12/07/2020 12:00:00 AM EDT tablet,delayed release (DR/EC) 90 T NOELLE ONE TABLET BY MOUTH EVERY DAY TAKE ONE TABLET BY MOUTH EVERY DAY SOLD: 12/08/2020 [facility] 400 mg 12/07/2020 12:00:00 AM EDT tablet 90 TAKE ONE TABLET BY MOUTH EVERY DAY TAKE ONE TABLET BY MOUTH EVERY DAY SOLD: 12/08/2020 [facility] 25 mg 12/07/2020 12:00:00 AM EDT tablet 180 TAKE ONE TABLET BY MOUTH TWICE A DAY TAKE ONE TABLET BY MOUTH TWICE A DAY SOLD: 12/08/2020 [facility] 100 mcg 12/07/2020 12:00:00 AM EDT tablet 90 TAKE ONE TABLET BY MOUTH EVERY DAY TAKE ONE TABLET BY MOUTH EVERY DAY SOLD: 12/08/2020 [facility] atorvastatin 20 MG Oral Tablet ATORVASTATIN CALCIUM 12/07/2020 1 2:00:00 AM EDT tablet 90 TAKE ONE TABLET BY MOUTH EVERY D AY TAKE ONE TABLET BY MOUTH EVERY DAY SOLD: 12/08/2020 [facility] 1 gram 12/07/2020 12:00:00 AM EDT tablet 270 TAKE ONE TABLET BY MOUTH THREE TIMES A DAY TAKE ONE TABLET BY MOUTH THREE TIMES A DAY SOLD: 12/08/2020 [facility] 200 mg/mL 08/24/2020 12:00:00 AM EST oil 10 INJECT 2ML INTRAMUSCULARLY EVERY 2 WEEKS MAXIMUM DAILY DOSE = 2ML INJECT 2ML INTRAMUSCULARLY EVERY 2 WEEKS MAXIMUM DAILY DOSE = 2ML SOLD: 08/29/2020 [facility] atorvastatin 40 MG Oral Tablet ATORVASTATIN CALCIUM 08/01/2020 1 2:00:00 AM EST tablet 90 TAKE ONE TABLET BY MOUTH EVERY D AY TAKE ONE TABLET BY MOUTH EVERY DAY SOLD: 08/02/2020 [facility] 200 mg/mL 08/01/2020 12:00:00 AM EST oil 4 ADMINISTER 2ML INTRAMUSCULARLY EVERY 2 WEEKS MAXIMUM DAILY DOSE = 2ML EVERY 2 WEEKS ADMINISTER 2ML INTRAMUSCULARLY EVERY 2 WEEKS MAXIMUM DAILY DOSE = 2ML EVERY 2 WEEKS SOLD: 08/02/2020 [facility] Inject Triamcinolone Acetonide 10 ML, [facility] 5860-7555-96 07/18/2020 12:00:00 AM EST completed [facility] ([facility] Medication administered onsite Inject Dexamthosone Phosphate 23893-893-61 07/18/2020 12:00:00 A M EST completed [facility] ([facility] Medication administered onsite 400 mg 07/12/2020 12:00:00 AM EDT tablet 90 TAKE ONE TABLET BY MOUTH EVERY DAY TAKE ONE TABLET BY MOUTH EVERY DAY SOLD: 07/13/2020 [facility] atorvastatin 20 MG Oral Tablet ATORVASTATIN CALCIUM 07/12/2020 1 2:00:00 AM EDT tablet 90 TAKE ONE TABLET BY MOUTH EVERY D AY TAKE ONE TABLET BY MOUTH EVERY DAY SOLD: 07/13/2020 [facility] pantoprazole 40 MG Delayed Release Oral Tablet PANTOPRAZOLE SODIUM 07/12/2020 12:00:00 AM EDT tablet,delayed release (DR/EC) 90 T NOELLE ONE TABLET BY MOUTH EVERY DAY TAKE ONE TABLET BY MOUTH EVERY DAY SOLD: 07/13/2020 [facility] 1 gram 07/12/2020 12:00:00 AM EDT tablet 270 TAKE ONE TABLET BY MOUTH THREE TIMES A DAY BEFORE MEALS OR DIRECTED TAKE ONE TABLET BY MOUTH THREE TIMES A DAY BEFORE MEALS OR DIRECTED SOLD: 07/13/2020 [facility] 100 mcg 07/12/2020 12:00:00 AM EDT tablet 90 TAKE ONE TABLET BY MOUTH EVERY DAY TAKE ONE TABLET BY MOUTH EVERY DAY SOLD: 07/13/2020 [facility] 25 mg 07/12/2020 12:00:00 AM EDT tablet 180 TAKE ONE TABLET BY MOUTH TWICE A DAY TAKE ONE TABLET BY MOUTH TWICE A DAY SOLD: 07/13/2020 [facility] Insurance Providers Payer name Policy type / Coverage type Policy ID Covered alliance party ID Covered alliance party's relationship to cunningham Policy Cunningham Plan Information [facility] Community Plan Commercial [id number] Self [id number] [facility] COMMUNITY PLAN [facility] [id number] SP [id number] [facility] MEDICAID [id number] Annmarie [id number] [facility] MEDICAID [id number] Annmarie [id number] [facility] COMMUNITY PLAN [facility] [id number] SP [id number] [facility] COMMUNITY PLAN [facility] [id number] SP [id number] [facility] [employer] [id number] Self [id number] MEDICARE [id number] xxxxxxxxxxx [id number] MEDICAID [id number] Annmarie [id number] MEDICARE [id number] Annmarie [id number] MEDICAID [id number] [id number] [facility] Medicare Medicare Part B [id number] Self [id number] EMEDNY [id number] SP [id number] EMEDNY [id number] SP [id number] UNHC COMMUNITY PLAN MCDO [id number] SP [id number] UNHC COMMUNITY PLAN MCDO UNK SP UNK [facility](MCAID) O [id number] S [id number] MEDICARE [id number] SP [id number] [place] [id number] SP [id number] U [facility] MEDICAID PI PI [facility] Health Maintenance Organization (HMO) [id number] Self [id number] [facility] Commercial [id number] Self [id number] [facility] Health Maintenance Organization (O) [id number] Self [id number] [facility] Health Maintenance Organization (O) [id number] Self [id number] [facility] Health Maintenance Organization (HMO) [id number] Self [id number] [facility] Health Maintenance Organization (O) [id number] Self 1 [id number] [facility] [id number] Self [id number] [facility] COMMUNITY PLAN [facility] [id number] SP [id number] [facility] COMMUNITY PLAN [facility] [id number] SP [id number] MEDICAID [id number] SP [id number] [facility] Health Maintenance Organization (HMO) [id number] Self [facility] COMMUNITY PLAN [facility] [id number] SP [id number] [facility] Community Plan Commercial [id number] Self SELF PAY UNAVAILABLE SP UNAVAILA BLE Problems, Conditions, and Diagnoses Code Display Name Description Problem Type Effective Dates Data Source(s) R07.89 Other chest pain Other chest pain Diagnosis 12/05/2020 03 :37:52 PM EDT [facility] F17.210 Nicotine dependence, cigarettes, uncompl icated Nicotine dependence, cigarettes, uncompl Diagnosis 12/05/2020 03:37:52 PM EDT [facility] R01.1 Cardiac murmur, unspecified Cardiac murmur, unspecifie d Diagnosis 12/05/2020 03:37:52 PM EDT [facility] E78.5 Hyperlipidemia, unspecified Hyperlipidemia, unspecifie d Diagnosis 12/05/2020 03:37:52 PM EDT [facility] M79.674 Pain in limb Pain in limb Problem 10/27/2020 12:00:00 A M EST [facility] ([facility] L60.0 Ingrowing nail Ingrowing nail Problem 10/27/2020 12:00: 00 AM EST [facility] ([facility] Surgeries/Procedures Procedure Description Date Indications Data Source(s) OFFICE OUTPATIENT VISIT 25 MINUTES 08/03/2021 12:00:00 AM EST [facility] ([facility] ) OFFICE OUTPATIENT NEW 45 MINUTES 07/06/2021 12:00:00 A M EDT [facility] ([facility] ) DEBRIDEMENT NAIL ANY METHOD /> 06/09/2021 12:00:00 AM EDT [facility] ([facility] AVULSION NAIL PLATE PARTIAL/COMPLETE SIMPLE 1 04/06/20 12:00:00 AM EDT [facility] ([facility] INJECTION 1 TENDON SHEATH/LIGAMENT APONEUROSIS 021 12:00:00 AM EDT [facility] ([facility] OFFICE OUTPATIENT VISIT 10 MINUTES 04/06/2021 12:00:00 AM EDT [facility] ([facility] ECG ROUTINE ECG W/LEAST 12 LDS W/I&R <td>POCT AMB EKG</td><td>Routine</td><td>12/05/2020 4:09 PM EDT</td><td> Other chest pain</td><td> </td> 12/05/2020 08:09:00 PM EDT Other chest pain [facility] Other chest pain OFFICE OUTPATIENT VISIT 15 MINUTES 10/18/2020 12:00:00 AM EST [facility] INJECTION 1 TENDON SHEATH/LIGAMENT APONEUROSIS 020 12:00:00 AM EST [facility] ([facility] Results No Information Social History No Information Vital Signs ID Date Data Source UNK Name Value Range Interpretation Code Description Data Source(s) Body temperature 97.8 [degF] 97.8 [degF] [facility] ([facility]) Body height 67 [in_i] 67 [in_i] [facility] ([facility]) 5'7" Body weight 271.50 [lb_av] 271.50 [lb_av] MEDEN T ([facility]) Body mass index (BMI) [Ratio] 42.5 kg/m2 42.5 k g/m2 [facility] ([facility]) Systolic blood pressure 126 mm[Hg] 126 mm[Hg] [facility] Diastolic blood pressure 84 mm[Hg] 84 mm[Hg] [facility] Heart rate 84 /min 84 /min [facility] Respiratory rate 16 /min 16 /min [facility] Body height 172.7 cm 172.7 cm [facility] Body weight 123.832 kg 123.832 kg [facility] Body mass index (BMI) [Ratio] 41.51 kg/m2 41.51 kg/m2 [facility] Heart rate 94 /min 94 /min [facility] ([facility] Body height 68 [in_i] 68 [in_i] [facility] 5'8" Body weight 235.00 [lb_av] 235.00 [lb_av] MEDEN T ([facility] Systolic blood pressure 130 mm[Hg] 130 mm[Hg] M EDENT ([facility] Diastolic blood pressure 84 mm[Hg] 84 mm[Hg] [facility] ([facility] Body mass index (BMI) [Ratio] 35.7 kg/m2 35.7 k g/m2 [facility] ([facility]
--- OUTSIDE RECORDS SUMMARY | 2021-08-17 19:54 | CCD ---
Author Author [facility] Organization [facility] Address Unknown Phone Unavailable Care Team Providers Care Triage Nurse Name Role Phone Maring, Kevin PA Unavailable [...] B Joey KING Unavailable Unavailable Fish, B Jeoy KING Unavailable Unavailable Fish, B Joey KING [...] Unavailable Fish, B Joey KING Unavailable Unavailable HOLLY, A. ELECTRICAL ENGINEERING PROFESSOR JOIE Unavailable [phone] HOLLY, A. ELECTRICAL ENGINEERING PROFESSOR JOIE Unavailable [phone] HOLLY, A. ELECTRICAL ENGINEERING PROFESSOR JOIE Unavailable [phone] HOLLY, A. ELECTRICAL ENGINEERING PROFESSOR JOIE Unavailable [phone] HOLLY, A. ELECTRICAL ENGINEERING PROFESSOR JOIE Unavailable [phone] HOLLY, A. ELECTRICAL ENGINEERING PROFESSOR JOIE Unavailable [phone] HOLLY, A. ELECTRICAL ENGINEERING PROFESSOR JOIE Unavailable [phone] HOLLY, A. ELECTRICAL ENGINEERING PROFESSOR JOIE Unavailable [phone] HOLLY, A. ELECTRICAL ENGINEERING PROFESSOR JOIE Unavailable [phone] HOLLY, A. ELECTRICAL ENGINEERING PROFESSOR JOIE Unavailable [phone] HOLLY, A. ELECTRICAL ENGINEERING PROFESSOR JOIE Unavailable [phone] HOLLY, A. ELECTRICAL ENGINEERING PROFESSOR JOIE Unavailable [phone] HOLLY, A. ELECTRICAL ENGINEERING PROFESSOR JOIE Unavailable [phone] HOLLY, A. ELECTRICAL ENGINEERING PROFESSOR JOIE Unavailable [phone] HOLLY, A. ELECTRICAL ENGINEERING PROFESSOR JOIE Unavailable [phone] HOLLY, A. ELECTRICAL ENGINEERING PROFESSOR JOIE Unavailable [phone] Alley WHITE MD Unavailable Unavailable Alley WHITE [...] Alley WHITE MD Unavailable Unavailable Feola, T Dianen PA Unavailable Unavailable Feola, T Dianne PA [...] Unavailable Feola, T Dianne PA Unavailable Unavailable Tanya TAN DPM Unavailable Unavailable Tanya TAN DPM Unavailable Unavailable Tanya TAN DPM Unavailable Unavailable Tanya TAN DPM Unavailable Unavailable Tanya TAN DPM Unavailable Unavailable Tanya TAN DPM Unavailable Unavailable Tanya TAN DPM Unavailable Unavailable Tanya TAN DPM Unavailable Unavailable Tanya TAN DPM Unavailable Unavailable Tanya TAN DPM Unavailable Unavailable Tanya TAN DPM Unavailable Unavailable Tanya TAN DPM Unavailable Unavailable Tanya TAN DPM Unavailable Unavailable Tanya TAN DPM Unavailable Unavailable Tanya TAN DPM Unavailable Unavailable MAJAK, R LAYO DPM [...] Unavailable MAJAK, R LAYO DPM Unavailable Unavailable Franck, N Erik CHEMISTRY LABORATORY TECHNICIAN Unavailable Unavailable Franck, N Erik CHEMISTRY LABORATORY TECHNICIAN Unavailable Unavailable Franck, N Erik CHEMISTRY LABORATORY TECHNICIAN Unavailable Unavailable Franck, N Erik CHEMISTRY LABORATORY TECHNICIAN Unavailable Unavailable Franck, N Erik CHEMISTRY LABORATORY TECHNICIAN Unavailable Unavailable Franck, N Erik CHEMISTRY LABORATORY TECHNICIAN Unavailable Unavailable Franck, N Erik CHEMISTRY LABORATORY TECHNICIAN Unavailable Unavailable [place], N Erik CHEMISTRY LABORATORY TECHNICIAN Unavailable Unavailable [place], N Erik CHEMISTRY LABORATORY TECHNICIAN Unavailable Unavailable Franck, N Erik CHEMISTRY LABORATORY TECHNICIAN Unavailable Unavailable [place], N Erik CHEMISTRY LABORATORY TECHNICIAN Unavailable Unavailable [place], N Erik CHEMISTRY LABORATORY TECHNICIAN Unavailable Unavailable [place], N Erik CHEMISTRY LABORATORY TECHNICIAN Unavailable Unavailable Franck, N Erik CHEMISTRY LABORATORY TECHNICIAN Unavailable Unavailable [place], N Erik CHEMISTRY LABORATORY TECHNICIAN Unavailable Unavailable [place], N Erik CHEMISTRY LABORATORY TECHNICIAN Unavailable Unavailable Franck, N Erik CHEMISTRY LABORATORY TECHNICIAN Unavailable Unavailable Franck, N Erik CHEMISTRY LABORATORY TECHNICIAN Unavailable Unavailable Franck, N Erik CHEMISTRY LABORATORY TECHNICIAN Unavailable Unavailable [place], N Erik CHEMISTRY LABORATORY TECHNICIAN Unavailable Unavailable [place], N Erik CHEMISTRY LABORATORY TECHNICIAN Unavailable Unavailable Franck, N Erik CHEMISTRY LABORATORY TECHNICIAN Unavailable Unavailable [place], N Erik CHEMISTRY LABORATORY TECHNICIAN Unavailable Unavailable [place], N Erik CHEMISTRY LABORATORY TECHNICIAN Unavailable Unavailable Franck, N Erik CHEMISTRY LABORATORY TECHNICIAN Unavailable Unavailable Franck, N Erik CHEMISTRY LABORATORY TECHNICIAN Unavailable Unavailable Franck, N Erik CHEMISTRY LABORATORY TECHNICIAN Unavailable Unavailable Franck, N Erik CHEMISTRY LABORATORY TECHNICIAN Unavailable Unavailable [place], N Erik CHEMISTRY LABORATORY TECHNICIAN Unavailable Unavailable [place], N Erik CHEMISTRY LABORATORY TECHNICIAN Unavailable Unavailable [place], N Erik CHEMISTRY LABORATORY TECHNICIAN Unavailable Unavailable Franck, N Erik CHEMISTRY LABORATORY TECHNICIAN Unavailable Unavailable Franck, N Erik CHEMISTRY LABORATORY TECHNICIAN Unavailable Unavailable Re-disclosure Warning The records that [...] is protected by Article 27-F of the [facility] Public Health law. If you continue you may have access to information: Regarding HIV / AIDS; Provided by facilities licensed or operated by the [facility] Office of Mental Health; or Provided by the [facility] Office for People With Developmental Disabilities. If such information is present, then the following [facility] mandated warning applies: This information has been [...] law may result in a fine or mcc sentence or both. A general authorization for the release of medical or other information is NOT sufficient authorization for further disc losure. Family History Family Member Name Family Member Gender Family Member Status Date o f Status Description Data Source(s) Unknown Unknown Problem [facility] ([facility]) Unknown Male Problem [facility] ([facility]) at age 72 Unknown Female Problem [facility] ([facility] ) Unknown Female Problem [facility] ([facility], ) Unknown Female Problem [facility] ([facility] ) Unknown Female Encounters Encounter Providers Location Date Indications Data Source(s ) Outpatient Attender: JOIE BARRERA 10/2020 02:44:25 PM EST - 08/17/2021 03:31:38 PM EST [facility] ([facility] ) Outpatient Attender: Joey Hollins MD Physical Therapy 08/03/2021 1 0:15:00 AM EST [facility] ([facility]) Outpatient Attender: STEPHANY WHITE MD 07/21 10:14:08 AM EDT - 07/21/2021 11:05:39 AM EDT [facility] ([facility] ) Outpatient 07/19/2021 10:54:30 AM EDT - 021 01:06:37 PM EDT [facility] ([facility]) Outpatient Attender: Kevin MEJÍA 07/15/20 04:16:32 PM EDT - 07/15/2021 04:51:21 PM EDT [facility] Outpatient Attender: Joey Hollins MD Physical Therapy 07/06/2021 0 3:00:00 PM EDT [facility] ([facility]) Outpatient Attender: LAYO TAN [facility] Office 03/17 03:45:00 PM EDT [facility] ([facility] Outpatient Attender: Dianne MEJÍA 021 04:33:35 PM EDT - 03/23/2021 05:46:33 PM EDT [facility] ([facility] ) Outpatient Attender: Erik RODRIGUEZ 021 12:00:00 AM EDT - 12/05/2020 04:12:22 PM EDT [facility] Outpatient Attender: LAYO TAN [facility] 10/2020 02:15:00 PM EST [facility] ([facility] Outpatient Attender: LAYO TAN [facility] 08/16 01:15:00 PM EST [facility] ([facility] Outpatient Attender: LAYO TAN [facility] 10/2019 01:15:00 PM EST [facility] ([facility] Outpatient Attender: Erik RODRIGUEZ 020 12:00:00 AM EDT - 06/06/2020 04:27:43 PM EDT [facility] Medications Medication Brand Name Start Date Product Form Dose Route Admi nistrative Instructions Pharmacy Instructions Status Indications Reaction Description Data Source(s) 6.5 % 07/15/2021 12:00:00 AM EDT drops 15 INSTILL 4 DROPS IN THE AFFECTED EAR TWO TIMES A DAY FOR 4 DAYS INSTILL 4 DROPS IN THE AFFECTED EAR TWO TIMES A DAY FOR 4 DAYS SOLD: 07/17/2021 [facility] Dexamthosone Phosphate 71974-103-87 04/06/2021 12:00:00 A M EDT completed [facility] Medication administered onsite Inject Triamcinolone Acetonide 10 ML, [facility] [id number] 04/06/2021 12:00:00 AM EDT completed [facility] ([facility] [...] BY MOUTH EVERY DAY SOLD: 01/20/2021 [facility] pantoprazole 40 MG Delayed Release Oral Tablet PANTOPRAZOLE SODIUM 12/07/2020 12:00:00 AM EDT tablet,delayed release (DR/EC) 90 T NOELLE ONE TABLET BY MOUTH EVERY DAY TAKE ONE TABLET BY MOUTH EVERY DAY SOLD: 12/08/2020 [facility] 400 mg 12/07/2020 12:00:00 AM EDT tablet 90 TAKE ONE TABLET BY MOUTH EVERY DAY TAKE ONE TABLET BY MOUTH EVERY DAY SOLD: 12/08/2020 [facility] 25 mg 12/07/2020 12:00:00 AM EDT [...] = 2ML EVERY 2 WEEKS SOLD: 08/02/2020 [facility] Inject Triamcinolone Acetonide 10 ML, [facility] [id number] 07/18/2020 12:00:00 AM EST completed [facility] ([facility] Medication administered onsite Inject Dexamthosone Phosphate 10394-568-08 07/18/2020 12:00:00 A M EST completed [facility] ([facility] Medication administered onsite 400 mg 07/12/2020 [...] type / Coverage type Policy ID Covered libertarian ID Covered libertarian's relationship to cunningham Policy Cunningham Plan Information Formerly [facility] Commercial [id number] Self [id number] [facility] [id number] [facility] [id number] [facility] MEDICAID [id number] [facility] [id number] [facility] MEDICAID [id number] Annmarie [id number] [facility] [id number] [place] [employer] [id number] Self [id number] MEDICARE [id number] Annmarie [id number] [id number] MEDICAID [id number] Annmarie [id number] MEDICARE [id number] [id number] MEDICAID [id number] [id number] [facility] Medicare Medicare Part B [id number] Self [id number] [facility] Health Maintenance Organization (HMO) [id number] Self [id number] [facility] Health Maintenance Organization [place] [id number] Self 1 [id number] [facility] Commercial [id number] Self 1 [id number] [employer] COMM[employer] MCDO [id number] SP [id number] [employer] COMMUNITY PLAN MCDHMO [id number] SP [id number] MEDICAID [id number] SP [id number] [facility] Health Maintenance Organization (O) [id number] Self UN COMMUNITY PLAN MCDO [id number] SP [id number] [facility] Community Plan Commercial [id number] Self SELF PAY UNAVAILABLE SP UNA[place]ILA BLE [place] MED[place] [id number] SP [id number] U MEDICARE [id number] SP [id number] [id number] [place] [id number] SP [id number] [place] [id number] SP [id number] [employer] COMMUNITY PLAN MCDO [id number] SP [id number] UN COMMUNITY PLAN MCDO UNK SP UNK [facility](MCAID) O [id number] S [id number] [facility] MEDICAID PI PI [facility] Health Maintenance Organization (O) [id number] [facility] Commercial [id number] Self [id number] [facility] Health Maintenance Organization (O) [id number] Self 1 [id number] [facility] Health Maintenance Organization (O) [id number] Self [id number] Problems, Conditions, and Diagnoses Code Display Name Description Problem Type Effective Dates Data Source(s) R07.89 Other chest pain Other chest pain Diagnosis 12/05/2020 03 :37:52 PM EDT [facility] F17.210 Nicotine dependence, cigarettes, uncompl icated Nicotine dependence, cigarettes, uncompl Diagnosis 12/05/2020 03:37:52 PM EDT [facility] R01.1 Cardiac murmur, unspecified Cardiac murmur, unspecifie d Diagnosis 12/05/2020 03:37:52 PM EDT [facility] E78.5 Hyperlipidemia, unspecified Hyperlipidemia, unspecifie d Diagnosis 12/05/2020 03:37:52 PM EDT [facility] M79.674 Pain in limb Pain in limb Problem 10/27/2020 12:00:00 A M EST [facility] L60.0 Ingrowing nail Ingrowing nail Problem 10/27/2020 12:00: 00 AM EST [facility] ([facility] Surgeries/Procedures Procedure Description Date Indications Data Source(s) OFFICE OUTPATIENT VISIT 25 MINUTES 08/03/2021 12:00:00 AM EST [facility] ([facility]) OFFICE OUTPATIENT NEW 45 MINUTES 07/06/2021 12:00:00 A M EDT [facility] ([facility]) DEBRIDEMENT NAIL ANY METHOD 6/> 06/09/2021 12:00:00 AM EDT [facility] AVULSION NAIL PLATE PARTIAL/COMPLETE SIMPLE 1 04/06/20 21 12:00:00 AM EDT [facility] ([facility] INJECTION 1 TENDON SHEATH/LIGAMENT APONEUROSIS 021 12:00:00 AM EDT [facility] ([facility] OFFICE OUTPATIENT VISIT 10 MINUTES 04/06/2021 12:00:00 AM EDT [facility] ECG ROUTINE ECG W/LEAST 12 LDS W/I&R <td>POCT AMB EKG</td><td>Routine</td><td>12/05/2020 4:09 PM EDT</td><td> Other chest pain</td><td> </td> 12/05/2020 08:09:00 PM EDT Other chest pain [facility] Other chest pain OFFICE OUTPATIENT VISIT 15 MINUTES 10/18/2020 12:00:00 AM EST [facility] ([facility] INJECTION 1 TENDON SHEATH/LIGAMENT APONEUROSIS 020 12:00:00 AM EST [facility] ([facility] Results No Information Social History No Information Vital Signs ID Date Data Source UNK Name Value Range Interpretation Code Description Data Source(s) Body height 67 [in_i] 67 [in_i] [facility] ([facility]) 5'7" Body temperature 97.8 [degF] 97.8 [degF] [facility] ([facility]) Body weight 271.50 [lb_av] 271.50 [lb_av] MED[facility] T ([facility]) Body mass index (BMI) [Ratio] 42.5 kg/m2 42.5 k g/m2 [facility] ([facility]) Systolic blood pressure 126 mm[Hg] 126 mm[Hg] [facility] Diastolic blood pressure 84 mm[Hg] 84 mm[Hg] [facility] Heart rate 84 /min 84 /min [facility] Respiratory rate 16 /min 16 /min [facility] Body height 172.7 cm 172.7 cm [facility] Body weight 123.832 kg 123.832 kg [facility] Body mass index (BMI) [Ratio] 41.51 kg/m2 41.51 kg/m2 [facility] Heart rate 94 /min 94 /min [facility] ([facility] Body height 68 [in_i] 68 [in_i] [facility] 5'8" Body weight 235.00 [lb_av] 235.00 [lb_av] [facility] T ([facility] Systolic blood pressure 130 mm[Hg] 130 mm[Hg] [facility] ([facility] Diastolic blood pressure 84 mm[Hg] 84 mm[Hg] [facility] Body mass index (BMI) [Ratio] 35.7 kg/m2 35.7 k g/m2 [facility]
== END 2021-08-17 20:16 | disposition left against medical advice (07) ==
LOC: M ED 15:56
DX: Z53.21 Procedure and treatment not carried out due to patient leaving prior to being seen by health care provider (principal)

== ENCOUNTER 2021-09-01 15:35 | Emergency (ER) | payer MEDICARE, MEDICAID ==
[~2021-09-01] VITALS: Ht 172.7 cm; Wt 118.2 kg
[~2021-09-01 15:35] MED LIST changes: +DEBR6.5S4; +SUCR1TAB56
[2021-09-01] MEDS ORDERED: ATOR40TA75 (16:00)
[2021-09-01] MEDS ORDERED: METO1TAB87 (16:00)
[2021-09-01] MEDS ORDERED: LEVO150T7 (16:00)
[2021-09-01 17:25] VITALS: O2SAT 96
--- NOTE | 2021-09-01 17:52 | REP ---
INDICATION: coiugh and sob COMPARISON: 02/06/2018 TECHNIQUE: Portable AP view of the chest FINDINGS: The mediastinum and cardiac silhouette are stable and within normal limits for portable technique. The lung zheng are clear without acute consolidation, effusion, or pneumothorax. Skeletal structures are intact. IMPRESSION: No acute cardiopulmonary process appreciated. <Electronically signed by aDyne Sanchez > 09/01/21 [id number]
[2021-09-01 18:26] LABS: MONO SCRN NEGATIVE (NEGATIVE)
[2021-09-01 19:03] LABS: RSV AMPLIFICATION NEGATIVE (NEGATIVE)
[2021-09-01 19:57] VITALS: BP 135/89
[2021-09-01] MEDS ORDERED: ACETAMINOPHEN 325 MG TAB PO ONE (20:00)
[2021-09-01] MEDS ORDERED: ALBU83IN INH (20:13)
[2021-09-01] MEDS ORDERED: TESS100C PO (20:13)
[2021-09-01 20:28] LABS: PROTHROMBIN TIME 13.6 SECONDS (12.7-14.5)
[2021-09-01 20:29] LABS: PARTIAL THROMBOPLASTIN TIME 31.7 SECONDS (25.9-37.0)
[2021-09-01 20:36] LABS: ALBUMIN 3.7 GM/DL (3.2-5.2); BILIRUBIN,DIRECT 0.2 MG/DL (0.0-0.2); BILIRUBIN,TOTAL 0.6 MG/DL (0.2-1.0); C REACTIVE PROTEIN QUANTITATIV 1.22 MG/DL (0.00-0.30); TOTAL PROTEIN 7.6 GM/DL (6.4-8.2)
== END 2021-09-01 21:10 | disposition home or self-care (01) ==
LOC: M ED 15:35
DX: U07.1 COVID-19 (principal); R05.9 Cough, unspecified; I25.10 Atherosclerotic heart disease of native coronary artery without angina pectoris; I10 Essential (primary) hypertension; E78.5 Hyperlipidemia, unspecified; K21.9 Gastro-esophageal reflux disease without esophagitis; E03.9 Hypothyroidism, unspecified; Z79.890 Hormone replacement therapy; Z79.899 Other long term (current) drug therapy

== ENCOUNTER 2021-09-02 22:02 | Emergency (ER) | payer MEDICARE, MEDICAID ==
[~2021-09-02] VITALS: Ht 172.7 cm; Wt 118.2 kg
[~2021-09-02 22:02] MED LIST changes: +ALBU83IN INH; +ATOR40TA75; +LEVO150T7; +METO1TAB87; +TESS100C PO
[2021-09-03 04:32] VITALS: BP 127/79
[2021-09-03] MEDS ORDERED: ALBUTEROL 90 MCG/ACT 8GM HFA INHALER INH ONE (05:30)
== END 2021-09-03 06:54 | disposition home or self-care (01) ==
LOC: M ED 22:02
DX: U07.1 COVID-19 (principal); I10 Essential (primary) hypertension; Z86.79 Personal history of other diseases of the circulatory system; Z79.899 Other long term (current) drug therapy

== ENCOUNTER 2021-09-04 07:15 | Outpatient (CLI) | payer MEDICARE, MEDICAID ==
--- NOTE | 2021-09-01 20:31 | IPNPDOC ---
Text Note Date of Service The patient was seen on 09/01/21. NOTE Outpatient transfusion for COVID+ patient encounter Patient is COVID19+ will be receiving Monocolonal antibodies infusion therapy per hospital infusion policy. Patient has been having a cough for 2 days which prompted him to come to the ER to get tested for COVID19. He denies other symptoms such as fever/chills/shortness of breath. Patient does not meet criteria to be admitted to the hospital. Patient is breathing at 98% on room air and does not dipped below 95% on ambulation. Patient will receive the infusion and then be discharged to home with OP followup. On exam patient was resting comfortably lungs were clear to auscultation bilaterally with no crackles or wheezing. Regular heart rate. Patient was calm awake and answering all questions appropriately. Is able to speak in full sentences without appearing short of breath. Consent was obtained with patient and signed in the chart. Patient advised to return to hospital should his symptoms worsen. COVID19 vaccination status: Unvaccination NATALIE AVILA MD Sep 01, 2021 20:31
[~2021-09-04] VITALS: Ht 172.7 cm; Wt 117.9 kg
[2021-09-04] MEDS ORDERED: NS 1,000 ML IV SCH (07:45)
[2021-09-04] MEDS ORDERED: diphenhydrAMINE 25MG CAP PO ONE (08:00)
[2021-09-04] MEDS ORDERED: ALBUTEROL 90 MCG/ACT 8GM HFA INHALER INH PRN (08:00)
[2021-09-04] MEDS ORDERED: EPINEPHrine INJ 1 MG/ML 1ML AMP IM PRN (08:00)
[2021-09-04] MEDS ORDERED: ACETAMINOPHEN TAB 650MG DOSE (2X325MG) PO ONE (08:00)
[2021-09-04] MEDS ORDERED: methylPREDNISolone 125MG 2ML VIAL IV PRN (08:00)
[2021-09-04] MEDS ORDERED: diphenhydrAMINE 50MG/ML VIAL (J1200) IV PRN (08:00)
[2021-09-04] MEDS ORDERED: ALBUTEROL SULFATE 2.5 MG/0.5 ML INH NEB SOLN INH PRN (08:00)
[2021-09-04] MEDS ORDERED: ACETAMINOPHEN TAB 650MG DOSE (2X325MG) PO PRN (08:00)
[2021-09-04 08:19] VITALS: BP 144/88
[2021-09-04] MEDS ORDERED: CASIRIVIMAB/IMDEVIMAB 1,200 MG in NS 250 ML IV ONE (08:30)
[2021-09-04 08:39] VITALS: BP 138/90
[2021-09-04 09:19] VITALS: BP 118/82
[2021-09-04 10:19] VITALS: BP 124/84
== END 2021-09-04 10:19 | disposition home or self-care (01) ==
LOC: M OPCLI4PR 07:15
PROVIDERS: ATTEND Family Medicine
DX: U07.1 COVID-19 (principal)

== ENCOUNTER → 2021-10-09 | Outpatient (CLI) | payer MEDICARE, OTHER | LOC: M RAD 13:09 | PROVIDERS: ATTEND Surgery | DX: K40.90 Unilateral inguinal hernia, without obstruction or gangrene, not specified as recurrent (principal) ==

== ENCOUNTER → 2022-10-29 | Outpatient (CLI) | payer MEDICARE, MEDICAID ==
[~2022-10-29] MED LIST changes: +ALBU2.5V10 INH; -ALBU83IN INH
[2022-10-29 10:37] LABS: HEMATOCRIT 44.9 % (42.0-52.0); HEMOGLOBIN 14.5 g/dl (13.5-17.5); MEAN CORPUSCULAR HEMOGLOBIN 27.7 pg (27.0-33.0); MEAN CORPUSCULAR HGB CONC 32.3 g/dl (32.0-36.5); MEAN CORPUSCULAR VOLUME 85.7 fl (80.0-96.0); PLATELET COUNT, AUTOMATED 398 10^3/uL (150-450); RED BLOOD COUNT 5.24 10^6/uL (4.30-6.10); WHITE BLOOD COUNT 11.3 10^3/uL (4.0-10.0)
[2022-10-29 10:58] LABS: HEMOGLOBIN A1c 5.5 % (4.0-6.0)
[2022-10-29 11:02] LABS: ALBUMIN 3.8 G/DL (3.2-5.2); ALKALINE PHOSPHATASE 153 U/L (46-116); ALT/SGPT 35 U/L (7.0-40); AST/SGOT 22 U/L (<34); BILIRUBIN,TOTAL 0.5 MG/DL (0.3-1.2); BLOOD UREA NITROGEN 9 MG/DL (9-23); CALCIUM LEVEL 8.9 MG/DL (8.5-10.1); CARBON DIOXIDE LEVEL 27 MMOL/L (20-31); CHLORIDE LEVEL 103 MMOL/L (98-107); CHOLESTEROL LEVEL 239 MG/DL (<200); CREATININE FOR GFR 0.68 MG/DL (0.70-1.30); GLOMERULAR FILTRATION RATE > 60.0 (>60); GLUCOSE, FASTING 96 MG/DL (60-100); HDL CHOLESTEROL 41.9 MG/DL (>40); LDL CHOLESTEROL 163.7 MG/DL (<100); NON-HDL-C 197 MG/DL; POTASSIUM SERUM 4.2 MMOL/L (3.5-5.1); PROSTATIC SPECIFIC AG MONITOR 2.48 NG/ML (< 4.00); SODIUM LEVEL 135 MMOL/L (136-145); TESTOSTERONE 217 NG/DL (241-827); TOTAL PROTEIN 7.1 G/DL (5.7-8.2); TRIGLYCERIDES LEVEL 167 MG/DL (<150)
== END ==
LOC: M LAB 09:37
PROVIDERS: ATTEND Family Medicine
DX: R53.83 Other fatigue (principal); I10 Essential (primary) hypertension; E03.9 Hypothyroidism, unspecified; Z79.899 Other long term (current) drug therapy; R97.20 Elevated prostate specific antigen [PSA]

== ENCOUNTER 2023-02-01 19:05 | Emergency (ER) | payer MEDICARE, MEDICAID ==
[2023-02-01 19:30] VITALS: BP 146/79
[2023-02-01] MEDS ORDERED: BOOSTRIX VACCINE (TETANUS/DIPHTH/ACEL. PERTUSSIS) 0.5ML SYR IM.IMMUN ONE (20:15)
[2023-02-01] MEDS ORDERED: BACIOIN5 TOP (20:23)
[2023-02-01] MEDS ORDERED: BACITRACIN OINTMENT 30GM TUBE TOP ONE (20:25)
[2023-02-01] MEDS ORDERED: XEROMIS TOP (20:26)
== END 2023-02-01 20:56 | disposition home or self-care (01) ==
LOC: EDBD 19:05 → M ED 19:05
DX: T23.201A Burn of second degree of right hand, unspecified site, initial encounter (principal); T23.202A Burn of second degree of left hand, unspecified site, initial encounter; X00.0XXA Exposure to flames in uncontrolled fire in building or structure, initial encounter; M54.50 Low back pain, unspecified; I10 Essential (primary) hypertension; E03.9 Hypothyroidism, unspecified; Z79.52 Long term (current) use of systemic steroids; Z79.899 Other long term (current) drug therapy; T31.0 Burns involving less than 10% of body surface

== ENCOUNTER 2023-04-21 13:37 | Emergency (ER) | payer MEDICARE, MEDICAID ==
[~2023-04-21] VITALS: Ht 172.7 cm; Wt 101.5 kg
[~2023-04-21 13:37] MED LIST changes: +BACIOIN5 TOP; +XEROMIS TOP
[2023-04-21] MEDS ORDERED: LEVO200T4 (14:11)
[2023-04-21] MEDS ORDERED: KETOROLAC 60MG 2ML VIAL IM ONE (16:20)
[2023-04-21] MEDS ORDERED: methocarbamoL 500 MG TAB PO ONE (16:20)
[2023-04-21] MEDS ORDERED: predniSONE 20 MG TAB PO ONE (16:20)
[2023-04-21] MEDS ORDERED: IBUP-1022 PO (18:11)
[2023-04-21] MEDS ORDERED: METH-1164 PO (18:11)
[2023-04-21] MEDS ORDERED: PRED20TA PO (18:14)
[2023-04-21 18:22] VITALS: BP 138/88; TEMP 98.1; O2SAT 98
[2023-04-21 18:57] LABS: GC DNA AMPLIFICATION NEGATIVE (NEGATIVE)
== END 2023-04-21 18:24 | disposition home or self-care (01) ==
LOC: M ED 13:37
DX: N50.812 Left testicular pain (principal); M54.30 Sciatica, unspecified side; K21.9 Gastro-esophageal reflux disease without esophagitis; E03.9 Hypothyroidism, unspecified; M54.50 Low back pain, unspecified; Z79.52 Long term (current) use of systemic steroids; Z79.899 Other long term (current) drug therapy
CPT/HCPCS: 72110; 73502; 76870; 81001; 87661; 87810; 87850; 93976; 96372; 99283; J1885; J7512

== ENCOUNTER 2023-08-05 12:37 | Emergency (ER) | payer MEDICARE, MEDICAID ==
[~2023-08-05] VITALS: Ht 172.7 cm; Wt 104.5 kg
[~2023-08-05 12:37] MED LIST changes: +LEVO200T4; +METH-1164 PO
[2023-08-05] MEDS ORDERED: KETOROLAC 30 MG/ML 1ML VIAL IM ONE (17:30)
[2023-08-05] MEDS ORDERED: predniSONE 20 MG TAB PO ONE (17:30)
[2023-08-05] MEDS ORDERED: PRED20TA PO (18:51)
[2023-08-05] MEDS ORDERED: IBUP-1022 PO (18:51)
[2023-08-05 18:59] VITALS: BP 140/82; TEMP 97.9; O2SAT 98
== END 2023-08-05 19:01 | disposition home or self-care (01) ==
LOC: M ED 12:37
DX: M54.32 Sciatica, left side (principal); I10 Essential (primary) hypertension; E03.9 Hypothyroidism, unspecified; E78.5 Hyperlipidemia, unspecified; Z86.79 Personal history of other diseases of the circulatory system; Z87.891 Personal history of nicotine dependence; Z79.52 Long term (current) use of systemic steroids; Z79.82 Long term (current) use of aspirin; Z79.02 Long term (current) use of antithrombotics/antiplatelets; Z79.899 Other long term (current) drug therapy
CPT/HCPCS: 72110; 96372; 99283; J1885; J7512

== ENCOUNTER → 2023-08-19 | Outpatient (CLI) | payer MEDICARE, MEDICAID | LOC: M RAD 14:30 | PROVIDERS: ATTEND Student in an Organized Health Care Education/Training Program | DX: M79.662 Pain in left lower leg (principal) ==

== ENCOUNTER → 2023-10-17 | Outpatient (CLI) | payer MEDICARE, MEDICAID ==
[~2023-10-17] MED LIST changes: +CYCL5TAB PO
[2023-10-17 13:21] LABS: HEMATOCRIT 44.4 % (42.0-52.0); HEMOGLOBIN 14.5 g/dl (13.5-17.5); MEAN CORPUSCULAR HEMOGLOBIN 28.9 pg (27.0-33.0); MEAN CORPUSCULAR HGB CONC 32.7 g/dl (32.0-36.5); MEAN CORPUSCULAR VOLUME 88.6 fl (80.0-96.0); PLATELET COUNT, AUTOMATED 398 10^3/uL (150-450); RED BLOOD COUNT 5.01 10^6/uL (4.30-6.10); WHITE BLOOD COUNT 9.8 10^3/uL (4.0-10.0)
[2023-10-17 13:42] LABS: PSA SCREENING 2.75 NG/ML (< 4.00)
[2023-10-17 13:46] LABS: ALBUMIN 3.9 G/DL (3.2-5.2); ALKALINE PHOSPHATASE 126 U/L (46-116); ALT/SGPT 20 U/L (7.0-40); AST/SGOT 13 U/L (<34); BILIRUBIN,TOTAL 0.3 MG/DL (0.3-1.2); BLOOD UREA NITROGEN 5 MG/DL (9-23); CALCIUM LEVEL 10.1 MG/DL (8.5-10.1); CARBON DIOXIDE LEVEL 34 MMOL/L (20-31); CHLORIDE LEVEL 106 MMOL/L (98-107); CHOLESTEROL LEVEL 193 MG/DL (<200); CHOLESTEROL RISK RATIO 4.17 (<5); CREATININE FOR GFR 0.69 MG/DL (0.70-1.30); GLOMERULAR FILTRATION RATE > 60.0 (>56); GLUCOSE, FASTING 98 MG/DL (60-100); HDL CHOLESTEROL 46.2 MG/DL (>40); LDL CHOLESTEROL 118.2 MG/DL (<100); NON-HDL-C 146.8 MG/DL; POTASSIUM SERUM 4.4 MMOL/L (3.5-5.1); SODIUM LEVEL 139 MMOL/L (136-145); THYROID STIMULATING HORMONE 1.659 uIU/ML (0.55-4.78); TOTAL 25(OH) VITAMIN D 16.6 NG/ML (20.0-100.0); TOTAL PROTEIN 7.2 G/DL (5.7-8.2); TRIGLYCERIDES LEVEL 143 MG/DL (<150)
[2023-10-17 13:48] LABS: TESTOSTERONE 258 NG/DL (241-827)
[2023-10-17 14:04] LABS: HEMOGLOBIN A1c 4.9 % (4.0-6.0)
== END ==
LOC: M LAB 12:32
PROVIDERS: ATTEND Family Medicine
DX: I10 Essential (primary) hypertension (principal); E03.9 Hypothyroidism, unspecified; R53.83 Other fatigue; D64.9 Anemia, unspecified; Z79.899 Other long term (current) drug therapy
CPT/HCPCS: 36415; 80053; 80061; 82306; 83036; 84403; 84443; 85027; G0103

== ENCOUNTER → 2023-10-31 | Outpatient (CLI) | payer MEDICARE, MEDICAID | LOC: M RAD 09:18 | PROVIDERS: ATTEND Family Medicine | DX: J44.9 Chronic obstructive pulmonary disease, unspecified (principal); R63.4 Abnormal weight loss ==

== ENCOUNTER 2023-11-25 11:11 | Day surgery (SDC) | payer MEDICARE, MEDICAID ==
[2023-09-30] MEDS: NS 1,000 ML IV ONE (06:00)
[~2023-11-25] VITALS: Ht 172.7 cm; Wt 109.0 kg
[2023-11-25] MEDS: NS 1,000 ML IV ONE (06:00)
[~2023-11-25 11:11] MED LIST changes: -ATOR40TA75; +ATOR40TA75 PO; +ERGO500029 PO; +LEVO2TA PO; +SUCR1TA PO
[2023-11-25 14:39] VITALS: TEMP 98.3
[2023-11-25 15:02] VITALS: BP 124/75; O2SAT 98
== END 2023-11-25 15:04 | disposition home or self-care (01) ==
LOC: M OPP 11:11
PROVIDERS: ATTEND Internal Medicine Gastroenterology
DX: K22.70 Barrett's esophagus without dysplasia (principal); K29.80 Duodenitis without bleeding; K31.89 Other diseases of stomach and duodenum; K22.89 Other specified disease of esophagus; R07.9 Chest pain, unspecified; Z79.02 Long term (current) use of antithrombotics/antiplatelets; Z79.1 Long term (current) use of non-steroidal anti-inflammatories (NSAID); Z79.82 Long term (current) use of aspirin; Z79.890 Hormone replacement therapy; Z79.899 Other long term (current) drug therapy; Z87.891 Personal history of nicotine dependence

== ENCOUNTER 2024-02-08 14:41 | Emergency (ER) | payer MEDICARE, MEDICAID ==
[~2024-02-08] VITALS: Ht 172.7 cm; Wt 110.0 kg
[2024-02-08 16:22] VITALS: BP 160/98; TEMP 97.1; O2SAT 98
== END 2024-02-08 16:25 | disposition home or self-care (01) ==
LOC: M ED 14:41
DX: S83.91XA Sprain of unspecified site of right knee, initial encounter (principal); S80.01XA Contusion of right knee, initial encounter; W01.0XXA Fall on same level from slipping, tripping and stumbling without subsequent striking against object, initial encounter; K21.9 Gastro-esophageal reflux disease without esophagitis; I10 Essential (primary) hypertension; R01.1 Cardiac murmur, unspecified; Y92.480 Sidewalk as the place of occurrence of the external cause; Y93.89 Activity, other specified; Y99.9 Unspecified external cause status; Z79.02 Long term (current) use of antithrombotics/antiplatelets; Z79.810 Long term (current) use of selective estrogen receptor modulators (SERMs); Z79.899 Other long term (current) drug therapy

== ENCOUNTER → 2024-02-12 | Outpatient (CLI) | payer MEDICARE, MEDICAID | LOC: M RAD 12:16 | PROVIDERS: ATTEND Physician Assistant | DX: S80.01XA Contusion of right knee, initial encounter (principal); Y93.9 Activity, unspecified; Y92.9 Unspecified place or not applicable ==

== ENCOUNTER → 2024-04-06 | Outpatient (CLI) | payer MEDICARE, MEDICAID | LOC: M RAD 11:13 | PROVIDERS: ATTEND Family Medicine | DX: M54.30 Sciatica, unspecified side (principal) ==

== ENCOUNTER → 2024-08-23 | Outpatient (CLI) | payer MEDICARE, MEDICAID ==
[~2024-08-23] MED LIST changes: -CYCL5TAB PO; +CYCL5TAB4 PO
[2024-08-23 12:47] LABS: HEMATOCRIT 44.1 % (42.0-52.0); HEMOGLOBIN 14.3 g/dl (13.5-17.5); MEAN CORPUSCULAR HEMOGLOBIN 28.4 pg (27.0-33.0); MEAN CORPUSCULAR HGB CONC 32.4 g/dl (32.0-36.5); MEAN CORPUSCULAR VOLUME 87.5 fl (80.0-96.0); PLATELET COUNT, AUTOMATED 434 10^3/uL (150-450); RED BLOOD COUNT 5.04 10^6/uL (4.30-6.10)
[2024-08-23 13:20] LABS: ALBUMIN 3.6 G/DL (3.2-5.2); ALKALINE PHOSPHATASE 125 U/L (40-129); ALT/SGPT 21 U/L (7.0-40); AST/SGOT 13 U/L (<34); BILIRUBIN,TOTAL 0.4 MG/DL (0.3-1.2); BLOOD UREA NITROGEN 7 MG/DL (9-23); CALCIUM LEVEL 9.6 MG/DL (8.5-10.1); CARBON DIOXIDE LEVEL 26 MMOL/L (20-31); CHLORIDE LEVEL 104 MMOL/L (98-107); CHOLESTEROL LEVEL 285 MG/DL (<200); CHOLESTEROL RISK RATIO 6.37 (<5); CREATININE FOR GFR 0.72 MG/DL (0.70-1.30); GLOMERULAR FILTRATION RATE > 60.0 (>56); GLUCOSE, FASTING 116 MG/DL (60-100); HDL CHOLESTEROL 44.7 MG/DL (>40); LDL CHOLESTEROL 195.9 MG/DL (<100); NON-HDL-C 240.3 MG/DL; POTASSIUM SERUM 4.1 MMOL/L (3.5-5.1); PROSTATIC SPECIFIC AG MONITOR 4.49 NG/ML (< 4.00); SODIUM LEVEL 138 MMOL/L (136-145); TOTAL PROTEIN 7.5 G/DL (5.7-8.2); TRIGLYCERIDES LEVEL 222 MG/DL (<150)
[2024-08-23 13:21] LABS: TESTOSTERONE 258 NG/DL (241-827); THYROID STIMULATING HORMONE 4.071 uIU/ML (0.55-4.78)
== END ==
LOC: M LAB 11:15
PROVIDERS: ATTEND Family Medicine
DX: I10 Essential (primary) hypertension (principal); D64.9 Anemia, unspecified; R53.83 Other fatigue; E03.9 Hypothyroidism, unspecified; Z79.899 Other long term (current) drug therapy

== ENCOUNTER → 2024-11-30 | Outpatient (CLI) | payer MEDICARE, MEDICAID ==
[2024-11-30 16:21] LABS: HEMATOCRIT 40.9 % (42.0-52.0); HEMOGLOBIN 13.4 g/dl (13.5-17.5); MEAN CORPUSCULAR HEMOGLOBIN 27.9 pg (27.0-33.0); MEAN CORPUSCULAR HGB CONC 32.8 g/dl (32.0-36.5); PLATELET COUNT, AUTOMATED 394 10^3/uL (150-450); RED BLOOD COUNT 4.81 10^6/uL (4.30-6.10); WHITE BLOOD COUNT 11.6 10^3/uL (4.0-10.0)
[2024-11-30 16:31] LABS: HEMOGLOBIN A1c 4.8 % (4.0-6.0)
[2024-11-30 16:48] LABS: PROSTATIC SPECIFIC AG MONITOR 2.75 NG/ML (< 4.00)
[2024-11-30 16:49] LABS: ALBUMIN 3.3 G/DL (3.2-5.2); ALKALINE PHOSPHATASE 146 U/L (40-129); ALT/SGPT 30 U/L (7.0-40); AST/SGOT 16 U/L (<34); BILIRUBIN,TOTAL 0.3 MG/DL (0.3-1.2); BLOOD UREA NITROGEN 6 MG/DL (9-23); CALCIUM LEVEL 8.7 MG/DL (8.5-10.1); CARBON DIOXIDE LEVEL 26 MMOL/L (20-31); CHLORIDE LEVEL 106 MMOL/L (98-107); CHOLESTEROL LEVEL 138 MG/DL (<200); CHOLESTEROL RISK RATIO 4.33 (<5); CREATININE FOR GFR 0.69 MG/DL (0.70-1.30); GLOMERULAR FILTRATION RATE > 60.0 (>56); GLUCOSE, FASTING 112 MG/DL (60-100); HDL CHOLESTEROL 31.8 MG/DL (>40); LDL CHOLESTEROL 53.8 MG/DL (<100); NON-HDL-C 106.2 MG/DL; POTASSIUM SERUM 3.9 MMOL/L (3.5-5.1); SODIUM LEVEL 142 MMOL/L (136-145); TOTAL PROTEIN 6.5 G/DL (5.7-8.2); TRIGLYCERIDES LEVEL 262 MG/DL (<150)
[2024-11-30 16:52] LABS: TESTOSTERONE 701 NG/DL (241-827); THYROID STIMULATING HORMONE < 0.010 uIU/ML (0.55-4.78)
== END ==
LOC: M LAB 15:59
PROVIDERS: ATTEND Family Medicine
DX: R53.83 Other fatigue (principal); I10 Essential (primary) hypertension; E03.9 Hypothyroidism, unspecified; Z79.899 Other long term (current) drug therapy

== ENCOUNTER → 2025-04-07 | Outpatient (CLI) | payer MEDICARE, MEDICAID ==
[2025-04-07 08:57] LABS: BASO # 0.0 10^3/uL (0.0-0.2); BASO % 0.4 % (0.0-1.0); EOS # 0.3 10^3/uL (0.0-0.5); EOS % 3.1 % (0.0-3.0); LYMPH # 2.2 10^3/uL (1.5-5.0); LYMPH % 21.7 % (24.0-44.0); MONO # 1.0 10^3/uL (0.0-0.8); MONO % 9.6 % (2.0-8.0); NEUTROPHILS # 6.4 10^3/uL (1.5-8.5); NEUTROPHILS % 63.8 % (36.0-66.0); PLATELET COUNT, AUTOMATED 378 10^3/uL (150-450)
[2025-04-07 09:14] LABS: PSA SCREENING 3.12 NG/ML (< 4.00)
[2025-04-07 09:17] LABS: ALT/SGPT 25 U/L (7.0-40); AST/SGOT 17 U/L (<34); CALCIUM LEVEL 8.9 MG/DL (8.5-10.1); CARBON DIOXIDE LEVEL 27 MMOL/L (20-31); CHLORIDE LEVEL 106 MMOL/L (98-107); CREATININE FOR GFR 0.61 MG/DL (0.70-1.30); GLOMERULAR FILTRATION RATE > 90.0 (>56); POTASSIUM SERUM 4.0 MMOL/L (3.5-5.1); SODIUM LEVEL 146 MMOL/L (136-145)
[2025-04-07 09:19] LABS: TESTOSTERONE 416 NG/DL (241-827)
== END ==
LOC: M LAB 08:04
PROVIDERS: ATTEND Internal Medicine
DX: E29.1 Testicular hypofunction (principal); E03.8 Other specified hypothyroidism; Z12.5 Encounter for screening for malignant neoplasm of prostate
CPT/HCPCS: 36415; 80053; 84403; 84443; 85025; G0103

== ENCOUNTER → 2025-05-05 | Outpatient (CLI) | payer MEDICARE, MEDICAID ==
[2025-05-05 08:49] LABS: TESTOSTERONE 354 NG/DL (241-827)
[2025-05-05 08:50] LABS: FREE T4 2.01 NG/DL (0.89-1.76)
== END ==
LOC: M LAB 07:38
PROVIDERS: ATTEND Internal Medicine
DX: E03.8 Other specified hypothyroidism (principal); E29.1 Testicular hypofunction

== ENCOUNTER → 2025-06-07 | Outpatient (CLI) | payer MEDICARE, MEDICAID ==
[~2025-06-07] MED LIST changes: -IBUP-1022 PO; +IBUP600T42 PO
[2025-06-07 10:00] LABS: FREE T4 1.82 NG/DL (0.89-1.76); TESTOSTERONE 392 NG/DL (241-827)
== END ==
LOC: M LAB 08:38
PROVIDERS: ATTEND Internal Medicine
DX: E03.8 Other specified hypothyroidism (principal); E29.1 Testicular hypofunction

== ENCOUNTER 2025-06-23 14:35 | Emergency (ER) | payer MEDICARE, MEDICAID ==
[~2025-06-23] VITALS: Ht 172.7 cm; Wt 113.3 kg
[2025-06-23 16:31] LABS: BASO # 0.1 10^3/uL (0.0-0.2); BASO % 0.5 % (0.0-1.0); EOS # 0.1 10^3/uL (0.0-0.5); EOS % 0.4 % (0.0-3.0); LYMPH # 2.2 10^3/uL (1.5-5.0); LYMPH % 11.0 % (24.0-44.0); MONO # 1.5 10^3/uL (0.0-0.8); MONO % 7.5 % (2.0-8.0); NEUTROPHILS # 15.9 10^3/uL (1.5-8.5); NEUTROPHILS % 78.9 % (36.0-66.0); PLATELET COUNT, AUTOMATED 446 10^3/uL (150-450)
[2025-06-23 16:56] LABS: CK-MB VALUE MASS 1.4 NG/ML (<3.6)
[2025-06-23 16:58] LABS: CPK CREATINE PHOSPHOKINASE 160 U/L (46-171); MB/CK RELATIVE INDEX 0.87 (< OR =4)
[2025-06-23 16:59] LABS: ALT/SGPT 26 U/L (7.0-40); AST/SGOT 21 U/L (<34); CALCIUM LEVEL 9.1 MG/DL (8.5-10.1); CARBON DIOXIDE LEVEL 28 MMOL/L (20-31); CHLORIDE LEVEL 102 MMOL/L (98-107); CREATININE FOR GFR 0.62 MG/DL (0.70-1.30); GLOMERULAR FILTRATION RATE > 90.0 (>56); POTASSIUM SERUM 3.6 MMOL/L (3.5-5.1); SODIUM LEVEL 142 MMOL/L (136-145)
[2025-06-23 17:01] LABS: FREE T4 1.65 NG/DL (0.89-1.76)
[2025-06-23] MEDS: KETOROLAC 30 MG/ML 1 ML VIAL IV ONE (17:18)
[2025-06-23 18:05] LABS: CK-MB VALUE MASS 1.3 NG/ML (<3.6)
[2025-06-23 18:06] LABS: CPK CREATINE PHOSPHOKINASE 158.0 U/L (46-171); MB/CK RELATIVE INDEX 0.82 (< OR =4)
[2025-06-23 20:47] LABS: CK-MB VALUE MASS 1.0 NG/ML (<3.6)
[2025-06-23 20:49] LABS: CPK CREATINE PHOSPHOKINASE 133.0 U/L (46-171); MB/CK RELATIVE INDEX 0.75 (< OR =4)
[2025-06-23 21:00] VITALS: BP 153/81; TEMP 97.4; O2SAT 96
== END 2025-06-23 21:06 | disposition home or self-care (01) ==
LOC: M ED 14:35
DX: R07.9 Chest pain, unspecified (principal); R09.A2 Foreign body sensation, throat; I45.81 Long QT syndrome; I10 Essential (primary) hypertension; E03.9 Hypothyroidism, unspecified; R51.9 Headache, unspecified; K21.9 Gastro-esophageal reflux disease without esophagitis; M54.50 Low back pain, unspecified; Z87.891 Personal history of nicotine dependence; Z79.02 Long term (current) use of antithrombotics/antiplatelets; Z79.899 Other long term (current) drug therapy
CPT/HCPCS: 70490; 71045; 71250; 80048; 80076; 82550; 82553; 83690; 83880; 84439; 84443; 84484; 85025; 93005; 93041; 94760; 96374; 99285; J1885

== ENCOUNTER → 2025-07-05 | Outpatient (CLI) | payer MEDICARE, MEDICAID ==
[2025-07-05 11:24] LABS: FREE T4 1.27 NG/DL (0.89-1.76)
== END ==
LOC: M LAB 09:28
PROVIDERS: ATTEND Internal Medicine
DX: E03.8 Other specified hypothyroidism (principal)